=== PATIENT | female | born 1960 | race Caucasian/White ===

== ENCOUNTER → 2016-06-25 | Outpatient (CLI) | payer MEDICARE | LOC: WI 14:00 | PROVIDERS: ATTEND Physician Assistant | DX: Z12.31 Encounter for screening mammogram for malignant neoplasm of breast (principal) | CPT/HCPCS: 77067; G0202 ==

== ENCOUNTER → 2016-11-20 | Outpatient (CLI) | payer MEDICARE ==
[2016-11-20 13:05] LABS: ANION GAP 11 (5-19); BLOOD UREA NITROGEN 33 mg/dL (7-20); CALCIUM 9.4 mg/dL (8.4-10.2); CARBON DIOXIDE 27 mmol/L (22-30); CHLORIDE 106 mmol/L (98-107); CREATININE RESULT 1.82 mg/dL (0.52-1.25); GLUCOSE 161 mg/dL (75-110); POTASSIUM 4.7 mmol/L (3.6-5.0); SODIUM 143.5 mmol/L (137-145)
== END ==
LOC: OD 11:59
PROVIDERS: ATTEND Internal Medicine Nephrology
DX: N17.9 Acute kidney failure, unspecified (principal)
CPT/HCPCS: 36415; 80048

== ENCOUNTER → 2017-06-28 | Outpatient (CLI) | payer MEDICARE ==
--- NOTE | 2017-06-28 14:46 | WOMENS IMAGING REPORT ---
EXAM DESCRIPTION: 3D SCREENING MAMMO BILAT COMPLETED DATE/TIME: 06/28/2017 11:33 am REASON FOR STUDY: ROUTINE SCREENING;Z12.31 Z12.31 ENCNTR SCREEN MAMMOGRAM FOR MALIGNANT NEOPLASM OF MADDISON COMPARISON: Multiple since 2008 TECHNIQUE: Standard craniocaudal and mediolateral oblique views of each breast recorded using digita l acquisition and breast tomosynthesis. LIMITATIONS: None. FINDINGS: No masses, calcifications or architectural distortion. No areas of suspicion. Read with the assistance of CAD. .[facility] - R2 Cenova Version 1.3 .[facility] Imaging - R2 Cenova Version 1.3 .[facility] Imaging - R2 Cenova Version 2.4 .[facility] - R2 Cenova Version 2.4 .[facility] - R2 [employer] Version 9.2 IMPRESSION: NORMAL MAMMOGRAM. BIRADS 1. BREAST DENSITY: b. There are scattered areas of fibroglandular density. BIRAD: 1 NEGATIVE RECOMMENDATION: ROUTINE SCREENING Please continue yearly bilateral screening mammography/tomosynthesis in June 2018 COMMENT: The patient has been notified of the results by letter per MQSA requirements. Additional no tification policies are in place for contacting patient with suspicious or incomplete findings. Quality ID #[id number]: The [employer] recommends an annual screening mammogram for women aged 40 years or over. This facility utilizes a reminder system to ensure that all patients receive reminder letters, and/or direct phone calls for appointments. This includes reminders for routine scr eening mammograms, diagnostic mammograms, or other Breast Imaging Interventions when appropriate. Th is patient will be placed in the appropriate reminder system. The [employer] (ACR) has developed recommendations for screening MRI of the breast s in certain patient populations, to be used in conjunction with mammography. Breast MRI surveillanc e may be appropriate for women with more than 20% lifetime risk of developing breast cancer as deter mined by genetic testing, significant family history of the disease, or history of mantle radiation f or Hodgkins Disease. ACR Practice Guidelines 2008. DBT Technology DBT is a type of tomographic mammography. With conventional mammography, overlapping breast tissue ma y make lesions difficult to detect, even with good compression. DBT uses an x-ray tube that rotates a round the breast, taking images at different angles. These images are then combined to create thin sl ices of the breast that the radiologist can view as a 3D reconstruction. The [employer] unit can perform full-field digital mammograms (2D imaging); or DBT (3D imaging); or both, in a combination mode that quickly performs both the mammogram and the tomosynthesis scan while the breast is still compressed. PQRS 6045F: Fluoroscopic imaging is not utilized for breast tomosynthesis. TECHNICAL DOCUMENTATION: FINDING NUMBER: (1) ASSESSMENT: (1) JOB ID: [id number] [employer]- All Rights Reserved Reading location - IP/workstation name: [email or web address]-[email or web address]
== END ==
LOC: WI 11:16
PROVIDERS: ATTEND Physician Assistant
DX: Z12.31 Encounter for screening mammogram for malignant neoplasm of breast (principal)
CPT/HCPCS: 77063; 77067

== ENCOUNTER → 2017-07-01 | Outpatient (CLI) | payer MEDICARE ==
[2017-07-01 10:46] LABS: ABSOLUTE BASOPHILS # (AUTO) 0.1 10^3/uL (0.0-0.2); ABSOLUTE EOSINOPHILS # (AUTO) 0.3 10^3/uL (0.0-0.6); ABSOLUTE LYMPHOCYTES (AUTO) 1.3 10^3/uL (0.5-4.7); ABSOLUTE MONOCYTES (AUTO) 0.4 10^3/uL (0.1-1.4); ABSOLUTE NEUT (AUTO) 3.9 10^3/uL (1.7-8.2); EOSINOPHILS % (AUTO) 4.7 % (0-6); HEMATOCRIT 36.3 % (36.0-47.0); HEMOGLOBIN 12.4 g/dL (12.0-15.5); LYMPHOCYTES % (AUTO) 21.6 % (13-45); MEAN CORPUSCULAR HEMOGLOBIN 31.3 pg (27.0-33.4); MEAN CORPUSCULAR HGB CONC 34.3 g/dL (32.0-36.0); MEAN CORPUSCULAR VOLUME 91 fl (80-97); MONOCYTES % (AUTO) 6.6 % (3-13); PLATELET COUNT 363 10^3/uL (150-450); RED BLOOD COUNT 3.98 10^6/uL (3.72-5.28); RED CELL DISTRIBUTION WIDTH 13.7 % (11.5-14.0); SEGMENTED NEUTROPHILS % (AUTO) 66.1 % (42-78); TOTAL CELLS COUNTED % (AUTO) 100 %
[2017-07-01 11:06] LABS: ANION GAP 16 (5-19); BLOOD UREA NITROGEN 42 mg/dL (7-20); CALCIUM 10.1 mg/dL (8.4-10.2); CARBON DIOXIDE 25 mmol/L (22-30); CHLORIDE 106 mmol/L (98-107); GLUCOSE 78 mg/dL (75-110); IRON(TIBC) 82.9 ug/dL (37-170); POTASSIUM 4.8 mmol/L (3.6-5.0); SODIUM 146.9 mmol/L (137-145)
== END ==
LOC: OD 09:21
PROVIDERS: ATTEND Internal Medicine Nephrology
DX: N18.3 Chronic kidney disease, stage 3 (moderate) (principal); D50.9 Iron deficiency anemia, unspecified; E55.9 Vitamin D deficiency, unspecified
CPT/HCPCS: 36415; 80048; 82306; 82728; 83540; 83550; 85025

== ENCOUNTER → 2017-11-04 | Outpatient (CLI) | payer MEDICARE ==
[2017-11-04 10:13] LABS: APPEARANCE,URINE CLEAR; BILIRUBIN,URINE NEGATIVE (NEGATIVE); COLOR,URINE STRAW; GLUCOSE, URINE NEGATIVE (NEGATIVE); KETONES,URINE NEGATIVE (NEGATIVE); LEUKOCYTE ESTERASE,URINE SMALL (NEGATIVE); NITRITE,URINE NEGATIVE (NEGATIVE); PROTEIN,URINE NEGATIVE (NEGATIVE); URINE SPECIFIC GRAVITY 1.008; UROBILINOGEN,URINE NEGATIVE mg/dL (<2.0)
[2017-11-04 10:39] LABS: ANION GAP 11 (5-19); BLOOD UREA NITROGEN 31 mg/dL (7-20); CARBON DIOXIDE 28 mmol/L (22-30); CHLORIDE 103 mmol/L (98-107); GLUCOSE 52 mg/dL (75-110); POTASSIUM 4.1 mmol/L (3.6-5.0); SODIUM 142.1 mmol/L (137-145)
[2017-11-05 12:38] LABS: CREATININE URINE 32.5 mg/dL (Not Estab.)
[2017-11-05 13:58] LABS: MICROALBUMIN URINE <3.0 ug/mL (Not Estab.)
== END ==
LOC: OD 08:41
PROVIDERS: ATTEND Internal Medicine Nephrology
DX: N18.3 Chronic kidney disease, stage 3 (moderate) (principal); E11.9 Type 2 diabetes mellitus without complications
CPT/HCPCS: 36415; 80048; 81001; 82043; 82570

== ENCOUNTER 2018-02-01 23:03 | Emergency (ER) | payer MEDICARE ==
[2018-02-01] MEDS ORDERED: IPRATROPIUM/ALBUTEROL 0.5-2.5 MG/3 ML AMPUL NEB ONE (23:35)
--- NOTE | 2018-02-02 00:06 | RADIOLOGY REPORT (SQ) ---
EXAM DESCRIPTION: XR CHEST 1 VIEW COMPLETED DATE/TME: 02/01/2018 23:34 CLINICAL HISTORY: 57 years, Female, sob COMPARISON: X-ray chest of 01/10/2016 NUMBER OF VIEWS: TECHNIQUE: LIMITATIONS: None. FINDINGS: No evidence of pulmonary infiltrate or pleural effusion. The heart and mediastinum are unremarkable. Pulmonary vascularity appears normal. There is no significant change, as compared with the prior x-rays. IMPRESSION: No acute finding. copyright 2010 [employer]- All Rights Reserved
[2018-02-02 00:10] LABS: ABSOLUTE EOSINOPHILS # (AUTO) 0.2 10^3/uL (0.0-0.6); ABSOLUTE LYMPHOCYTES (AUTO) 1.1 10^3/uL (0.5-4.7); ABSOLUTE MONOCYTES (AUTO) 0.5 10^3/uL (0.1-1.4); ABSOLUTE NEUT (AUTO) 3.5 10^3/uL (1.7-8.2); BASOPHILS % (AUTO) 0.7 % (0-2); EOSINOPHILS % (AUTO) 4.5 % (0-6); HEMATOCRIT 37.4 % (36.0-47.0); HEMOGLOBIN 12.7 g/dL (12.0-15.5); MEAN CORPUSCULAR HEMOGLOBIN 31.6 pg (27.0-33.4); MEAN CORPUSCULAR HGB CONC 34.1 g/dL (32.0-36.0); MEAN CORPUSCULAR VOLUME 93 fl (80-97); MONOCYTES % (AUTO) 9.1 % (3-13); PLATELET COUNT 324 10^3/uL (150-450); RED BLOOD COUNT 4.03 10^6/uL (3.72-5.28); RED CELL DISTRIBUTION WIDTH 13.4 % (11.5-14.0); SEGMENTED NEUTROPHILS % (AUTO) 64.7 % (42-78); TOTAL CELLS COUNTED % (AUTO) 100 %; WHITE BLOOD COUNT 5.4 10^3/uL (4.0-10.5)
[2018-02-02 00:11] LABS: VENOUS BLOOD BASE EXCESS 0.6 mmol/L; VENOUS BLOOD HCO3 25.2 mmol/L (20-32); VENOUS BLOOD PCO2 40.5 mmHg (35-63); VENOUS BLOOD PH 7.41 (7.30-7.42)
[2018-02-02 00:18] LABS: ANION GAP 12 (5-19); BLOOD UREA NITROGEN 22 mg/dL (7-20); CALCIUM 9.4 mg/dL (8.4-10.2); CARBON DIOXIDE 24 mmol/L (22-30); CHLORIDE 107 mmol/L (98-107); GLUCOSE 230 mg/dL (75-110); POTASSIUM 4.1 mmol/L (3.6-5.0); SODIUM 142.5 mmol/L (137-145)
[2018-02-02] MEDS ORDERED: BENZONATATE 100 MG CAPSULE PO ONE (00:38)
[2018-02-02] MEDS ORDERED: PREDNISONE 20 MG TABLET PO ONE (00:38)
[2018-02-02] MEDS ORDERED: DOXYCYCLINE HYCLATE 100 MG TABLET PO ONE (00:38)
--- NOTE | 2018-02-02 00:41 | ER Document Report ---
ED General - General Chief Complaint: Shortness Of Breath Stated Complaint: SHORT OF BREATH Time Seen by Provider: 02/01/18 23:34 Notes: Patient is a 57-year-old female with a past medical history of hypertension, hyperlipidemia, COPD, continues to smoke who presents with 2 days of cough, sputum production, body aches, nasal congestion and fever. Patient states that her symptoms started gradually over the past several days and has gotten progressively worse. She has been trying inhalers at home with moderate improvement of her cough and wheezing. Nothing worsens her symptoms. She notes this feels very similar to when she has had COPD exacerbations with bronchitis in the past. She has not seen her general physician regarding concerns. She denies any associated vomiting or diarrhea. She has been able to tolerate oral intake without difficulty. No headache or neck pain. No syncope. TRAVEL OUTSIDE OF THE [place] IN LAST 30 DAYS: No - Related Data Allergies/Adverse Reactions: cephalexin monohydrate [From Keflex] Allergy (Verified 08/03/13 09:22) ciprofloxacin [From Cipro] Allergy (Verified 08/03/13 09:22) Penicillins Allergy (Verified 08/03/13 09:22) Sulfa (Sulfonamide Antibiotics) Allergy (Verified 08/03/13 09:22) Past Medical History - General Information source: Patient - Social History Smoking Status: Current Every Day Smoker Frequency of alcohol use: None Drug Abuse: None Lives with: Spouse/Significant other Family History: Reviewed & Not Pertinent Patient has suicidal ideation: No Patient has homicidal ideation: No - Past Medical History Cardiac Medical History: Reports: Hx Congestive Heart Failure, Hx Coronary Artery Disease - ON MEDICATIONS, Hx Hypercholesterolemia, Hx Hypertension Denies: Hx Heart Attack Pulmonary Medical History: Reports: Hx Asthma, Hx COPD, Hx Pneumonia Denies: Hx Bronchitis Neurological Medical History: Reports: Hx Migraine, Hx Seizures. Denies: Hx Cerebrovascular Accident Endocrine Medical History: Reports: Hx Diabetes Mellitus Type 2 Renal/ Medical History: Reports: Hx Ovarian Cysts. Denies: Hx Peritoneal Dialysis GI Medical History: Reports: Hx Gastroesophageal Reflux Disease, Hx Irritable Bowel Musculoskeletal Medical History: Reports Hx Arthritis, Reports Hx Muscle Weakness, Reports Hx Musculoskeletal Deformity, Reports Hx Musculoskeletal Trauma Psychiatric Medical History: Reports: Hx Depression Past Surgical History: Reports: Hx Cardiac Catheterization, Hx Cholecystectomy, Hx Gynecologic Surgery - right ovary removed, Hx Orthopedic Surgery - bilateral knees and elbows, Hx Tubal Ligation - Immunizations Immunizations up to date: Yes Hx Diphtheria, Pertussis, Tetanus Vaccination: Yes Hx Pneumococcal Vaccination: 03/11/14 Review of Systems - Review of Systems Notes: Constitutional: Positive for fever and generalized fatigue HENT: Negative for sore throat. Eyes: Negative for visual changes. Cardiovascular: Negative for chest pain. Respiratory: Positive for shortness of breath. Gastrointestinal: Negative for abdominal pain, vomiting or diarrhea. Genitourinary: Negative for dysuria. Musculoskeletal: Negative for back pain. Skin: Negative for rash. Neurological: Negative for headaches, weakness or numbness. 10 point ROS negative except as marked above and in HPI. Physical Exam - Vital signs Vitals: Temp Pulse Resp BP Pulse Ox 100.4 F 72 22 H 122/71 95 02/01/18 23:13 02/01/18 23:13 02/01/18 23:13 02/01/18 23:13 02/01/18 23:13 Interpretation: Normal Notes: PHYSICAL EXAMINATION: GENERAL: Well-appearing, well-nourished and in no acute distress. HEAD: Atraumatic, normocephalic. EYES: Pupils equal round and reactive to light, extraocular movements intact, sclera anicteric, conjunctiva are normal. ENT: nares patent, oropharynx clear without exudates. Moderately dry mucous membranes. NECK: Normal range of motion, supple without lymphadenopathy LUNGS: Breath sounds clear to auscultation bilaterally and equal. Faint expiratory wheezing in all lung villa. Persistent coughing. HEART: Regular rate and rhythm without murmurs ABDOMEN: Soft, nontender, normoactive bowel sounds. No guarding, no rebound. No masses appreciated. EXTREMITIES: Normal range of motion, no pitting or edema. No cyanosis. NEUROLOGICAL: No focal neurological deficits. Moves all extremities spontaneously and on command. PSYCH: Normal mood, normal affect. SKIN: Warm, Dry, normal turgor, no rashes or lesions noted. Course - Re-evaluation Re-evalutation: 02/02/18 00:39 Patient presents with a mild exacerbation of their baseline COPD. Mild wheezing at time of presentation but vitals do not show significant hypoxemia or tachypnea. No retractions. Patient did clinically improve after receiving nebulizers here in the emergency department. Chest x-ray without evidence of an acute pneumonia although patient did have a low-grade temperature of 100.4 F and has had increased sputum production warranting antibiotic coverage. Laboratories do not show acute kidney injury or significant leukocytosis. Patient able to ambulate without any respiratory distress. Based on patient's overall reassuring assessment, I believe they are stable for outpatient management with steroids. Patient has nebulizers at home. I do not suspect an acute alternative pathology at this time based on history and exam including acute pulmonary embolus, ACS, pneumothorax, or aortic dissection. At this time will discharge with return precautions and follow-up recommendations. Verbal discharge instructions given a the bedside and opportunity for questions given. Medication warnings reviewed. Patient is in agreement with this plan and has verbalized understanding of return precautions and the need for primary care follow-up in the next 24-72 hours. - Vital Signs Vital signs: Temp Pulse Resp BP Pulse Ox 97.4 F 88 22 H 127/58 H 95 02/02/18 00:54 02/02/18 00:54 02/02/18 00:54 02/02/18 00:54 02/02/18 00:54 - Laboratory Result Diagrams: 02/01/18 23:50 02/01/18 23:50 Laboratory results interpreted by me: 02/01/18 23:50 BUN 22 H Est GFR (Non-Af Amer) 52 L Glucose 230 H - Diagnostic Test Radiology reviewed: Image reviewed, Reports reviewed Radiology results interpreted by me: 02/02/18 00:39 Chest x-ray: No acute infiltrate or pneumothorax - EKG Interpretation by Me Additional EKG results interpreted by me: 02/02/18 00:39 Sinus rhythm, rate 72. No ST elevations or depressions. QTC is 465. Discharge - Discharge Clinical Impression: COPD exacerbation, Persistent cough Fever Qualifiers: Fever type: unspecified Qualified Code(s): R50.9 - Fever, unspecified Condition: Good Disposition: HOME, SELF-CARE Additional Instructions: You were seen for a COPD exacerbation. Your symptoms improved with treatment here in the emergency department. However, it is very important that you return to the emergency department immediately if you began to have worsening difficulty breathing that does not respond to your normal home nebulizers. You are also being sent home on a five-day course of steroids that you should start taking tomorrow. Your also being started on a course of antibiotics given that she did have a fever. Please also follow closely with your primary care physician. You should return to emergency department if you develop fever greater than 101, persistent cough, persistent vomiting, pass out, or any other symptoms that are concerning to you. Prescriptions: Benzonatate [Tessalon Perles 100 mg Capsule] 100 mg PO Q8HP PRN #40 capsule PRN Reason: Doxycycline Hyclate 100 mg PO BID #14 capsule Prednisone [Deltasone 20 mg Tablet] 2 tab PO DAILY 5 Days tablet Referrals: CHRISTOPHER ELDER MD [ACTIVE STAFF] - Follow up in 3-5 days
[2018-02-02 00:55] VITALS: BP 127/58
--- NOTE | 2018-02-02 10:36 | EKG REPORT ---
SEVERITY:- OTHERWISE NORMAL ECG - SINUS RHYTHM BORDERLINE LEFT AXIS DEVIATION : Confirmed by: Enoc Aviles 02-Feb-2018 10:35:43
== END 2018-02-02 01:04 | disposition home or self-care (01) ==
LOC: ER 23:03
DX: J44.1 Chronic obstructive pulmonary disease with (acute) exacerbation (principal); R05 Cough; R09.81 Nasal congestion; R50.9 Fever, unspecified; R52 Pain, unspecified; R53.83 Other fatigue; I25.10 Atherosclerotic heart disease of native coronary artery without angina pectoris; E11.9 Type 2 diabetes mellitus without complications; I10 Essential (primary) hypertension; F17.200 Nicotine dependence, unspecified, uncomplicated; Z88.1 Allergy status to other antibiotic agents; Z88.0 Allergy status to penicillin; Z88.2 Allergy status to sulfonamides
CPT/HCPCS: 93005; 94640; 99285; 36415; 87040; 85025; 80048; 84484; 82803; 83605; 71045; 93010; A9270 ×4; J7512; J7620

== ENCOUNTER → 2018-02-10 | Outpatient (CLI) | payer MEDICARE ==
--- NOTE | 2018-02-10 14:32 | RADIOLOGY REPORT (SQ) ---
EXAM DESCRIPTION: CT CHEST WITHOUT COMPLETED DATE/TIME: 02/10/2018 1:23 pm REASON FOR STUDY: COUGH (R05) R05 COUGH COMPARISON: Chest films 09/12/2011, 08/15/2015, 01/10/2016, 02/01/2018 CT abdomen pelvis 03/23/2010 TECHNIQUE: CT scan performed of the chest without intravenous contrast. Images reviewed with lung, soft tissue and bone windows. Reconstructed coronal and sagittal MPR images reviewed. All images st ored on PACS. All CT scanners at this facility use dose modulation, iterative reconstruction, and/or weight based d osing when appropriate to reduce radiation dose to as low as reasonably achievable (ALARA). [facility]: Dose Right [facility]: CareDose [facility]: Dose Right [facility]: Teradose 4D [facility]: [employer] RADIATION DOSE: CT Rad equipment meets quality standard of care and radiation dose reduction techniq ues were employed. CTDIvol: 19.5 mGy. DLP: 767 mGy-cm. mGy. LIMITATIONS: No technical limitations. FINDINGS: LUNGS AND PLEURA: At the left lung base, along the inferior aspect of the major fissure, a 6 x 3 cm bulla or bleb is present. Along the superior edge of the left major fissure, 1.5 x 1 cm bu llae or blebs are present on axial image 35. Minimal left basilar bandlike scarring or atelectasis is present. No alveolar or interstitial lung d isease. Airways are patent. No pleural effusions. No pneumothorax. HILAR AND MEDIASTINAL STRUCTURES: Small hiatal hernia. No identified masses or abnormal nodes. No o bvious aneurysm. HEART AND VASCULAR STRUCTURES: No aneurysm. No pericardial effusion. UPPER ABDOMEN: 2.6 cm nodule, left adrenal gland similar compared to CT abdomen pelvis 03/23/2010. 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 Right adrenal gland unremarkable THYROID AND OTHER SOFT TISSUES: No masses. No adenopathy. BONES: No significant finding. HARDWARE: None in the chest. OTHER: No other significant findings. IMPRESSION: Bullae or blebs along the left major fissure. 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
== END ==
LOC: RAD 13:11
PROVIDERS: ATTEND Internal Medicine Pulmonary Disease
DX: J43.9 Emphysema, unspecified (principal); R05 Cough; K44.9 Diaphragmatic hernia without obstruction or gangrene; D17.79 Benign lipomatous neoplasm of other sites
CPT/HCPCS: 71250

== ENCOUNTER → 2018-03-20 | Outpatient (CLI) | payer MEDICARE ==
[2018-03-20 09:07] LABS: ABSOLUTE BASOPHILS # (AUTO) 0.1 10^3/uL (0.0-0.2); ABSOLUTE EOSINOPHILS # (AUTO) 0.2 10^3/uL (0.0-0.6); ABSOLUTE LYMPHOCYTES (AUTO) 1.5 10^3/uL (0.5-4.7); ABSOLUTE MONOCYTES (AUTO) 0.4 10^3/uL (0.1-1.4); EOSINOPHILS % (AUTO) 4.6 % (0-6); HEMATOCRIT 37.6 % (36.0-47.0); LYMPHOCYTES % (AUTO) 28.3 % (13-45); MEAN CORPUSCULAR HEMOGLOBIN 31.6 pg (27.0-33.4); MEAN CORPUSCULAR HGB CONC 34.5 g/dL (32.0-36.0); MEAN CORPUSCULAR VOLUME 92 fl (80-97); MONOCYTES % (AUTO) 8.4 % (3-13); PLATELET COUNT 304 10^3/uL (150-450); RED BLOOD COUNT 4.11 10^6/uL (3.72-5.28); RED CELL DISTRIBUTION WIDTH 13.6 % (11.5-14.0); SEGMENTED NEUTROPHILS % (AUTO) 57.7 % (42-78); TOTAL CELLS COUNTED % (AUTO) 100 %; WHITE BLOOD COUNT 5.3 10^3/uL (4.0-10.5)
[2018-03-20 09:23] LABS: APPEARANCE,URINE CLOUDY; BILIRUBIN,URINE NEGATIVE (NEGATIVE); COLOR,URINE YELLOW; GLUCOSE, URINE NEGATIVE (NEGATIVE); KETONES,URINE NEGATIVE (NEGATIVE); LEUKOCYTE ESTERASE,URINE LARGE (NEGATIVE); NITRITE,URINE NEGATIVE (NEGATIVE); PROTEIN,URINE NEGATIVE (NEGATIVE); URINE SPECIFIC GRAVITY 1.015; UROBILINOGEN,URINE NEGATIVE mg/dL (<2.0)
[2018-03-20 09:35] LABS: ANION GAP 8 (5-19); BLOOD UREA NITROGEN 22 mg/dL (7-20); CALCIUM 9.4 mg/dL (8.4-10.2); CARBON DIOXIDE 26 mmol/L (22-30); CHLORIDE 105 mmol/L (98-107); GLUCOSE 101 mg/dL (75-110); PHOSPHORUS 3.3 mg/dL (2.5-4.5); POTASSIUM 4.5 mmol/L (3.6-5.0); SODIUM 139.4 mmol/L (137-145)
[2018-03-21 12:38] LABS: CREATININE URINE 105.3 mg/dL (Not Estab.)
[2018-03-21 15:48] LABS: MICROALBUMIN URINE <3.0 ug/mL (Not Estab.)
== END ==
LOC: OD 08:27
PROVIDERS: ATTEND Internal Medicine Nephrology
DX: E11.22 Type 2 diabetes mellitus with diabetic chronic kidney disease (principal); N18.3 Chronic kidney disease, stage 3 (moderate); D50.9 Iron deficiency anemia, unspecified; E55.9 Vitamin D deficiency, unspecified
CPT/HCPCS: 36415; 80048; 81001; 82040; 82043; 82306; 82570; 83970; 84100; 85025

== ENCOUNTER → 2018-06-30 | Outpatient (CLI) | payer MEDICARE ==
[2018-06-30 13:35] LABS: ANION GAP 11 (5-19); BLOOD UREA NITROGEN 37 mg/dL (7-20); CALCIUM 9.8 mg/dL (8.4-10.2); CARBON DIOXIDE 24 mmol/L (22-30); CHLORIDE 109 mmol/L (98-107); GLUCOSE 63 mg/dL (75-110); POTASSIUM 4.2 mmol/L (3.6-5.0); SODIUM 144.1 mmol/L (137-145)
[2018-06-30 15:30] LABS: APPEARANCE,URINE SLIGHTLY-CLOUDY; BILIRUBIN,URINE NEGATIVE (NEGATIVE); COLOR,URINE YELLOW; GLUCOSE, URINE NEGATIVE (NEGATIVE); KETONES,URINE NEGATIVE (NEGATIVE); LEUKOCYTE ESTERASE,URINE TRACE (NEGATIVE); NITRITE,URINE NEGATIVE (NEGATIVE); PROTEIN,URINE NEGATIVE (NEGATIVE); URINE SPECIFIC GRAVITY 1.018; UROBILINOGEN,URINE NEGATIVE mg/dL (<2.0)
== END ==
LOC: OD 12:10
PROVIDERS: ATTEND Internal Medicine Nephrology
DX: N18.3 Chronic kidney disease, stage 3 (moderate) (principal); E11.22 Type 2 diabetes mellitus with diabetic chronic kidney disease; I12.9 Hypertensive chronic kidney disease with stage 1 through stage 4 chronic kidney disease, or unspecified chronic kidney disease; D50.8 Other iron deficiency anemias; E55.9 Vitamin D deficiency, unspecified; R10.9 Unspecified abdominal pain
CPT/HCPCS: 36415; 80048; 81001; 87086

== ENCOUNTER → 2018-07-04 | Outpatient (CLI) | payer MEDICARE ==
--- NOTE | 2018-07-04 14:44 | RADIOLOGY REPORT (SQ) ---
EXAM DESCRIPTION: CT ABD/PELVIS NO ORAL OR IV COMPLETED DATE/TIME: 07/04/2018 1:54 pm REASON FOR STUDY: R10.9 UNSPECIFIED ABDOMINAL PAIN R10.9 UNSPECIFIED ABDOMINAL PAIN COMPARISON: 03/23/2010 TECHNIQUE: CT scan of the abdomen and pelvis performed without intravenous or oral contrast. Images reviewed with lung, soft tissue, and bone windows. Reconstructed coronal and sagittal MPR images revi ewed. All images stored on PACS. All CT scanners at this facility use dose modulation, iterative reconstruction, and/or weight based d osing when appropriate to reduce radiation dose to as low as reasonably achievable (ALARA). [facility]: Dose Right [facility]: CareDose [facility]: Dose Right [facility]: Teradose 4D [facility]: [employer] RADIATION DOSE: CT Rad equipment meets quality standard of care and radiation dose reduction techniq ues were employed. CTDIvol: 30.4 mGy. DLP: 1777 mGy-cm.mGy. LIMITATIONS: None. FINDINGS: LOWER CHEST: No significant findings. No nodules or infiltrates. NON-CONTRASTED LIVER, SPLEEN, ADRENALS: Evaluation limited by lack of IV contrast. Benign 2.5 cm lef t adrenal nodule unchanged from February 2010. PANCREAS: No masses. No peripancreatic inflammatory changes. GALLBLADDER: Surgically absent RIGHT KIDNEY AND URETER: No suspicious masses. Assessment limited by lack of IV contrast. No signif icant calcifications. No hydronephrosis or hydroureter. LEFT KIDNEY AND URETER: No suspicious masses. Assessment limited by lack of IV contrast. No signifi cant calcifications. No hydronephrosis or hydroureter. AORTA AND RETROPERITONEUM: No aneurysm. No retroperitoneal masses or adenopathy. BOWEL AND PERITONEAL CAVITY: No obvious masses or inflammatory changes. No free fluid. APPENDIX: Normal. PELVIS, BLADDER, AND ABDOMINAL WALL:No abnormal masses. No free fluid. Bladder normal. Fibroid uteru s BONES: Diffuse degenerative disc changes and lumbar facet arthropathy OTHER: No other significant finding. IMPRESSION: No CT findings to explain history of abdominal pain COMMENT: Quality ID # 436: Final reports with documentation of one or more dose reduction techniques (e.g., Automated exposure control, adjustment of the mA and/or kV according to patient size, use of iterative reconstruction technique) TECHNICAL DOCUMENTATION: JOB ID: [id number] [employer]- All Rights Reserved Reading location - IP/workstation name: [email or web address]
== END ==
LOC: RAD 13:40
PROVIDERS: ATTEND Internal Medicine Nephrology
DX: R10.9 Unspecified abdominal pain (principal)
CPT/HCPCS: 74176

== ENCOUNTER → 2018-08-08 | Outpatient (CLI) | payer MEDICARE | LOC: WI 11:43 | PROVIDERS: ATTEND Physician Assistant | DX: Z12.31 Encounter for screening mammogram for malignant neoplasm of breast (principal) | CPT/HCPCS: 77063; 77067 ==

== ENCOUNTER → 2019-01-19 | Outpatient (CLI) | payer MEDICARE ==
[2019-01-19 09:10] LABS: APPEARANCE,URINE CLOUDY; BILIRUBIN,URINE NEGATIVE (NEGATIVE); COLOR,URINE YELLOW; GLUCOSE, URINE NEGATIVE (NEGATIVE); KETONES,URINE NEGATIVE (NEGATIVE); LEUKOCYTE ESTERASE,URINE NEGATIVE (NEGATIVE); NITRITE,URINE NEGATIVE (NEGATIVE); PROTEIN,URINE NEGATIVE (NEGATIVE); UROBILINOGEN,URINE NEGATIVE mg/dL (<2.0)
[2019-01-19 09:42] LABS: ANION GAP 9 (5-19); BLOOD UREA NITROGEN 27 mg/dL (7-20); CALCIUM 9.6 mg/dL (8.4-10.2); CARBON DIOXIDE 24 mmol/L (22-30); CHLORIDE 108 mmol/L (98-107); GLUCOSE 171 mg/dL (75-110); PHOSPHORUS 4.9 mg/dL (2.5-4.5)
== END ==
LOC: OD 08:35
PROVIDERS: ATTEND Internal Medicine Nephrology
DX: N18.3 Chronic kidney disease, stage 3 (moderate) (principal); I10 Essential (primary) hypertension; E11.9 Type 2 diabetes mellitus without complications; R30.9 Painful micturition, unspecified
CPT/HCPCS: 36415; 80048; 81001; 84100; 87086

== ENCOUNTER → 2019-03-05 | Outpatient (CLI) | payer MEDICARE ==
--- NOTE | 2019-03-05 12:44 | RADIOLOGY REPORT (SQ) ---
EXAM DESCRIPTION: CT CHEST WITHOUT COMPLETED DATE/TIME: 03/05/2019 9:43 am REASON FOR STUDY: BULLOUS EMPHYSEMA (J43.9) J43.9 EMPHYSEMA, UNSPECIFIED COMPARISON: None. TECHNIQUE: CT scan performed of the chest without intravenous contrast. Images reviewed with lung, soft tissue and bone windows. Reconstructed coronal and sagittal MPR images reviewed. All images st ored on PACS. All CT scanners at this facility use dose modulation, iterative reconstruction, and/or weight based d osing when appropriate to reduce radiation dose to as low as reasonably achievable (ALARA). [facility]: Dose Right [facility]: CareDose [facility]: Dose Right [facility]: Teradose 4D [facility]: [employer] RADIATION DOSE: CT Rad equipment meets quality standard of care and radiation dose reduction techniq ues were employed. CTDIvol: 19.4 mGy. DLP: 736 mGy-cm. mGy. LIMITATIONS: No technical limitations. FINDINGS: LUNGS AND PLEURA: There are some perifissural bullae on the left. The largest measures 6 x 3 cm on image 59. There is no infiltrate, mass, or effusion. HILAR AND MEDIASTINAL STRUCTURES: No identified masses or abnormal nodes. No obvious aneurysm. HEART AND VASCULAR STRUCTURES: No aneurysm. No pericardial effusion. UPPER ABDOMEN: No significant findings. Limited exam. THYROID AND OTHER SOFT TISSUES: No masses. No adenopathy. BONES: No significant finding. HARDWARE: None in the chest. OTHER: No other significant findings. IMPRESSION: Mild bullous emphysema. No acute finding. TECHNICAL DOCUMENTATION: JOB ID: [id number] Quality ID # [id number]: Final reports with documentation of one or more dose reduction techniques (e.g., Au tomated exposure control, adjustment of the mA and/or kV according to patient size, use of iterative reconstruction technique) 2010 [employer]- All Rights Reserved Reading location - IP/workstation name: [email or web address]
== END ==
LOC: RAD 09:23
PROVIDERS: ATTEND Registered Nurse
DX: J43.9 Emphysema, unspecified (principal)
CPT/HCPCS: 71250

== ENCOUNTER → 2019-11-04 | Outpatient (CLI) | payer MEDICARE ==
--- NOTE | 2019-11-04 12:49 | WOMENS IMAGING REPORT ---
EXAM DESCRIPTION: 3D SCREENING MAMMO BILAT IMAGES COMPLETED DATE/TIME: 11/04/2019 12:12 pm REASON FOR STUDY: Z12.31 ENCNTR SCREEN MAMMOGRAM FOR MALIGNANT NEOPLASM OF BREAST Z12.31 ENCNTR SCR EEN MAMMOGRAM FOR MALIGNANT NEOPLASM OF [place]DISON COMPARISON: Priors dating back 2013. EXAM PARAMETERS: Views: Standard craniocaudal and mediolateral oblique views of each breast recorded using digital acquisition and breast tomosynthesis. Read with the assistance of CAD. .[facility] [employer] Version 9.2 LIMITATIONS: None. FINDINGS: No suspicious masses, suspicious calcifications or architectural distortion. No areas of c oncern. IMPRESSION: NEGATIVE MAMMOGRAM. BIRADS 1. BREAST DENSITY: b. There are scattered areas of fibroglandular density. BIRAD: ASSESSMENT: 1 NEGATIVE RECOMMENDATION: ROUTINE SCREENING COMMENT: The patient has been notified of the results by letter per MQSA requirements. Additional no tification policies are in place for contacting patient with suspicious or incomplete findings. Quality ID #[id number]: The [employer] recommends an annual screening mammogram for women aged 40 years or over. This facility utilizes a reminder system to ensure that all patients receive reminder letters, and/or direct phone calls for appointments. This includes reminders for routine scr eening mammograms, diagnostic mammograms, or other Breast Imaging Interventions when appropriate. Th is patient will be placed in the appropriate reminder system. TECHNICAL DOCUMENTATION: FINDING NUMBER: (1) ASSESSMENT: (1) JOB ID: [id number] 2010 [employer]- All Rights Reserved Reading location - IP/workstation name: [email or web address]
== END ==
LOC: WI 11:21
PROVIDERS: ATTEND Physician Assistant
DX: Z12.31 Encounter for screening mammogram for malignant neoplasm of breast (principal)
CPT/HCPCS: 77063; 77067

== ENCOUNTER → 2020-01-07 | Outpatient (CLI) | payer MEDICARE ==
[2020-01-07 12:47] LABS: ANION GAP 8 (5-19); BLOOD UREA NITROGEN 17 mg/dL (7-20); CALCIUM 9.2 mg/dL (8.4-10.2); CARBON DIOXIDE 23 mmol/L (22-30); CHLORIDE 109 mmol/L (98-107); GLUCOSE 155 mg/dL (75-110); POTASSIUM 4.3 mmol/L (3.6-5.0)
--- OUTSIDE RECORDS SUMMARY | 2020-01-08 15:23 | XMS REPORT ---
:1960 [facility] [place] [address] [place] [address] Care Team Providers Name Role Phone BUNDLE Primary Care Physician Unavailable Gabbi CARDOZO Attending Clinician Unavailable Bundle Attending Clinician Unavailable Blaise CARDOZO Attending Clinician Unavailable Bundle Attending Clinician Unavailable Bundle MINDY Geronimo Attending Clinician Unavailable Allergies, Adverse Reactions, Alerts Allergy Name Allergy Status Severity Reaction(s) Onset Inactive Treat ing Comments Type Date Date Clinician AZITHROMYCIN Drug Active Unknown allergy 2-03 00:00: 00 Cephalexin Allergy to Active substance 8-25 00:00: 00 Ciprofloxaci Allergy to Active 2017- n substance 8-25 00:00: 00 Saccharin Allergy to Active 2017- substance 8-25 00:00: 00 Cipro Allergy to Active 2013- substance 1-20 00:00: 00 Keflex Allergy to Active 2013-0 substance 1-20 00:00: 00 Penicillins Allergy to Active 2013-0 substance 1-20 00:00: 00 Sulfa Allergy to Active 2013-0 (Sulfonamide substance 1-20 Antibiotics) 00:00: 00 Cipro TABS Cipro TABS Active Keflex TABS Keflex TABS Active Penicillins Penicillins Active Sulfa Drugs Sulfa Drugs Active Medications Ordered Filled Start Stop Current Ordering Indication Dosage Frequency Signature Comments Components Medication Medication Date Date Medication? Clinician (SIG) Name Name Famotidine No Famotidine 20 MG Oral 8-27 20 MG Oral Tablet 00:00: Tablet 00 Quantity: 90 Refills: 0 Start : 0Active Topiramate Yes Topiramate 25 MG Oral 3-12 25 MG Oral Capsule 00:00: Capsule Sprinkle 00 Sprinkle Quantity: 240 Refills: 0 Start : 0Active Metoprolol No Metoprolol Tartrate 25 2-03 Tartrate MG Oral 00:00: 25 MG Oral Tablet 00 Tablet Quantity: 180 Refills: 0 Start : 30-Mar-2019 Active Metoprolol Tonie Lozano QD Metoprolol Succinate 11-17 Blaise CARDOZO Succinate ER 50 MG 07:50: ER 50 MG Oral Tablet 13 Oral Extended Tablet Release 24 Extended Hour Release 24 Hour Take 1 tablet by mouth once daily Quantity: 30 Refills: 11 Blake Welsh MD Start : 9Active Oxybutynin No Oxybutynin Chloride 5 08-22 Chloride 5 MG/5ML Oral 00:00: MG/5ML Syrup 00 Oral Syrup Quantity: 300 Refills: 0 Start : 9Active Lisinopril No Lluvia Lisinopril 20 MG Oral 05-23 Vishnu GUILLEN-Grazyna 20 MG Oral Tablet 13:56: Tablet 17 TAKE ONE TABLET BY MOUTH ONCE DAILY DIRECTED Quantity: 90 Refills: 3 Lluvia Mares PA-C Start : 9Active Furosemide 2017-02 Yes Quentin Furosemide 40 MG Oral 04-24 David DAIGLE 40 MG Oral Tablet 11:10: Tablet 51 TAKE ONE TABLET BY MOUTH ONCE DAILY Quantity: 90 Refills: 3 Quentin Hernandez PA-C Start : 8Active Klor-Con 2017-02 No Blake Klor-Juan Manuel M20 20 MEQ 2- Blaise CARDOZO M20 20 MEQ Oral Tablet 12:44: Oral Extended 15 Tablet Release Extended Release TAKE ONE TABLET BY MOUTH ONCE DAILY Quantity: 90 Refills: 3 Blake Welsh MD Start : 27-Jan-2018 Active Furosemide No Quentin Furosemide 80 MG Oral 6- David DAIGLE 80 MG Oral Tablet 16:14: Tablet 32 TAKE ONE TABLET BY MOUTH ONCE DAILY IN THE MORNING Quantity: 90 Refills: 3 Quentin Hernandez PA-C Start : 29-Jul-2017 Active Anoro No Anoro Ellipta 5-22 Ellipta 62.5-25 00:00: 62.5-25 MCG/INH 00 MCG/INH Inhalation Inhalation Aerosol Aerosol Powder Powder Breath Breath Activated Activated 1 puff once a day Refills: 0 Start : 7Active 14 Inhaler Pack Metoprolol Tonie Lozano Metoprolol Succinate 09-12 Blaise CARDOZO Succinate ER 25 MG 00:00: ER 25 MG Oral Tablet 00 Oral Extended Tablet Release 24 Extended Hour Release 24 Hour Refills: 0 Blake Welsh MD Start : 6Active levofloxaci No levofloxac n 500 mg in 500 mg tablet TAKE tablet 1 TABLET BY TAKE 1 MOUTH EVERY TABLET BY 24 HOURS MOUTH EVERY 24 HOURS lisinopril No lisinopril 20 mg 20 mg tablet TAKE tablet 1 TABLET BY TAKE 1 MOUTH ONCE TABLET BY DAILY MOUTH ONCE DIRECTED DAILY DIRECTED methocarbam No methocarba ol 500 mg mol 500 mg tablet Take tablet 2 tablets Take 2 twice a day tablets by oral twice a route for day by 30 days. oral route for 30 days. metoprolol No metoprolol succinate succinate ER 50 mg ER 50 mg tablet,exte tablet,ext nded ended release 24 release 24 hr TAKE 1 hr TAKE 1 TABLET BY TABLET BY MOUTH ONCE MOUTH ONCE DAILY DAILY nabumetone No nabumetone 500 mg 500 mg tablet Take tablet 1 tablet(s) Take 1 twice a day tablet(s) by oral twice a route. day by oral route. ofloxacin No ofloxacin 0.3 % ear 0.3 % ear drops drops oxybutynin No oxybutynin chloride 5 chloride 5 mg tablet mg tablet TAKE 1 TAKE 1 TABLET BY TABLET BY MOUTH TWICE MOUTH DAILY TWICE DAILY oxycodone-a No oxycodone- cetaminophe acetaminop n 5 mg-325 hen 5 mg tablet mg-325 mg tablet pantoprazol No pantoprazo e 40 mg le 40 mg tablet,marcin tablet,del yed release ayed 40 mg by release 40 oral route. mg by oral route. potassium No potassium chloride ER chloride 10 mEq ER 10 mEq capsule,ext capsule,ex ended tended release release TAKE 2 TAKE 2 CAPSULES BY CAPSULES MOUTH ONCE BY MOUTH DAILY WITH ONCE DAILY FOOD WITH FOOD topiramate No topiramate 25 mg 25 mg sprinkle sprinkle capsule capsule TAKE 4 TAKE 4 CAPSULES BY CAPSULES MOUTH TWICE BY MOUTH DAILY IN TWICE THE MORNING DAILY IN AND IN THE THE EVENING MORNING AND IN THE EVENING calcium-vit No calcium-vi chin tamin D3-vitamin D3-vitamin K 500 K 500 mg-1,000 mg-1,000 unit-40 mcg unit-40 chewable mcg tablet chewable tablet HYDROcodone No 1 HYDROcodon -Acetaminop e-Acetamin hen 10-325 ophen MG Oral 10-325 MG Tablet Oral Tablet TAKE 1 TABLET EVERY 4 HOURS NEEDED FOR PAIN. Refills: 0 Active ferrous No ferrous sulfate 15 sulfate 15 mg iron (75 mg iron mg)/mL oral (75 mg)/mL syringe oral (FOR ORAL syringe USE ONLY) (FOR ORAL USE ONLY) Fenofibrate No 1 QD Fenofibrat 160 MG Oral e 160 MG Tablet Oral Tablet TAKE 1 TABLET DAILY Quantity: 30 Refills: 5 Active metoprolol No metoprolol tartrate 25 tartrate mg tablet 25 mg TAKE 1 tablet TABLET BY TAKE 1 MOUTH TWICE TABLET BY DAILY MOUTH (CRUSH TWICE TABLET) DAILY (CRUSH TABLET) Atorvastati No Atorvastat n Calcium in Calcium 20 MG Oral 20 MG Oral Tablet Tablet TAKE 1 TABLET AT BEDTIME. Quantity: 30 Refills: 0 Active omeprazole No omeprazole 20 mg 20 mg capsule,del capsule,de ayed layed release release TAKE 1 TAKE 1 CAPSULE BY CAPSULE BY MOUTH ONCE MOUTH ONCE DAILY DAILY Oxybutynin No 1 Q0.5D Oxybutynin Chloride 5 Chloride 5 MG Oral MG Oral Tablet Tablet TAKE 1 TABLET TWICE DAILY Refills: 0 Active oxybutynin No oxybutynin chloride 5 chloride 5 mg/5 mL mg/5 mL oral syrup oral syrup Aspirin EC No 2 QD Aspirin EC 81 MG Oral 81 MG Oral Tablet Tablet Delayed Delayed Release Release TAKE 2 TABLET DAILY Refills: 3 Active oxycodone 5 No oxycodone mg/5 mL 5 mg/5 mL oral oral solution solution Lexapro 10 Yes 1 QD Lexapro 10 MG Oral MG Oral Tablet Tablet TAKE 1 TABLET DAILY. Quantity: 90 Refills: 0 Active vitamin B12 No vitamin 500 B12 500 mcg-folic mcg-folic acid 400 acid 400 mcg tablet mcg tablet Gabapentin Yes Q0.3333D Gabapentin 300 MG Oral 300 MG Capsule Oral Capsule TAKE 2 CAPSULES 3 TIMES DAILY. Refills: 0 Active Vitamin D3 No Vitamin D3 50 mcg 50 mcg (2,000 (2,000 unit) unit) capsule capsule Lantus No Lantus SoloStar SoloStar 100 UNIT/ML 100 SOLN UNIT/ML SOLN INJECT SUBCUTANEO USLY DIRECTED. Refills: 0 Active diazepam 5 No diazepam 5 mg tablet mg tablet Take one Take one tablet 30 tablet 30 minutes minutes prior to prior to test. Bring test. 2nd tablet Bring 2nd to tablet to facility. facility. Must have a Must have cat driver. a cat driver. Zyrtec 10 Yes 1 Zyrtec 10 MG TABS MG TABS TAKE 1 TABLET AT BEDTIME. Refills: 0 Active Valium 5 mg No Valium 5 tablet take mg tablet 1 pill 30 take 1 minutes pill 30 prior to minutes MRI, save prior to 2nd pill if MRI, save needed 2nd pill if needed famotidine No famotidine 20 mg 20 mg tablet tablet Centrum Yes 1 QD Centrum Silver Silver Ultra Ultra Womens Oral Womens Tablet Oral Tablet TAKE 1 TABLET DAILY. Refills: 0 Active Iron No Iron (ferrous (ferrous sulfate) sulfate) 325 mg (65 325 mg (65 mg iron) mg iron) tablet tablet Fluticasone No Q0.5D Fluticason Propionate e 50 MCG/ACT Propionate Nasal 50 MCG/ACT Suspension Nasal Suspension USE 1 SPRAY IN EACH NOSTRIL TWICE DAILY. Refills: 0 Active topiramate No topiramate 100 mg 100 mg tablet tablet Albuterol No Albuterol 90 MCG/ACT 90 MCG/ACT AERS AERS INHALE 1 TO 2 PUFFS EVERY 4 TO 6 HOURS NEEDED AND DIRECTED. Refills: 0 Active Percocet 5 No Percocet 5 mg-325 mg mg-325 mg tablet TAKE tablet 1 TAB PO Q TAKE 1 TAB 6 HRS X 3 PO Q 6 HRS DAYS, THEN X 3 DAYS, 1 TAB PO Q THEN 1 TAB 8 HRS X 3 PO Q 8 HRS DAYS, THEN X 3 DAYS, 1 TAB PO Q THEN 1 TAB 12 HRS X 1 PO Q 12 DAY PRN HRS X 1 POST OP DAY PRN PAIN POST OP PAIN Albuterol Yes Q0.25D Albuterol Sulfate Sulfate (2.5 (2.5 MG/3ML) MG/3ML) 0.083% 0.083% Inhalation Inhalation Nebulizatio Nebulizati n Solution on Solution USE 1 UNIT DOSE IN NEBULIZER 4 TIMES DAILY Refills: 0 Active promethazin No promethazi e 25 mg ne 25 mg tablet Take tablet 1 tablet(s) Take 1 TID PRN tablet(s) NAUSEA TID PRN NAUSEA Pantoprazol No 1 QD Pantoprazo e Sodium 40 le Sodium MG Oral 40 MG Oral Tablet Tablet Delayed Delayed Release Release TAKE 1 TABLET DAILY Refills: 3 Active Iron 325 Yes Q0.5D Iron 325 (65 Fe) MG (65 Fe) MG Oral Tablet Oral Tablet TAKE 1 TABLET TWICE DAILY WITH MEALS. Refills: 0 Active Vitamin C Yes 1 Q0.5D Vitamin C 500 MG Oral 500 MG Capsule Oral Capsule TAKE 1 CAPSULE TWICE DAILY Refills: 0 Active Clindamycin No Clindamyci HCl - 300 n HCl - MG Oral 300 MG Capsule Oral Capsule TAKE 2 CAPSULES PRIOR TO DENTAL APPTS AND PROCEDURES Refills: 0 Active NovoLIN Yes NovoLIN 70/30 70/30 (70-30) 100 (70-30) UNIT/ML 100 Subcutaneou UNIT/ML s Subcutaneo Suspension us Suspension USE DIRECTED. Refills: 0 Active 10 ML Vial acetaminoph No acetaminop en 300 hen 300 mg-codeine mg-codeine 30 mg 30 mg tablet tablet aspirin 81 No 1 BID aspirin 81 mg mg tablet,marcin tablet,del yed release ayed Take 1 release tablet Take 1 twice a day tablet by oral twice a route as day by directed oral route for 14 as days. directed for 14 days. atorvastati No atorvastat n 20 mg in 20 mg tablet 20 tablet 20 mg by oral mg by oral route. route. azithromyci No azithromyc n 250 mg in 250 mg tablet tablet cetirizine No cetirizine 1 mg/mL 1 mg/mL oral oral solution solution TAKE 10 ML TAKE 10 ML BY MOUTH BY MOUTH ONCE DAILY ONCE DAILY cetirizine No cetirizine 10 mg 10 mg tablet TAKE tablet 1 TABLET BY TAKE 1 MOUTH ONCE TABLET BY DAILY MOUTH ONCE DAILY diclofenac No diclofenac sodium 75 sodium 75 mg mg tablet,marcin tablet,del yed release ayed TAKE 1 release TABLET BY TAKE 1 MOUTH TWICE TABLET BY DAILY FOR MOUTH 15 DAYS TWICE DAILY FOR 15 DAYS escitalopra No escitalopr m 10 mg am 10 mg tablet TAKE tablet 1 TABLET BY TAKE 1 MOUTH ONCE TABLET BY DAILY MOUTH ONCE DAILY escitalopra No escitalopr m 5 mg/5 mL am 5 mg/5 oral mL oral solution solution ferrous No ferrous sulfate 220 sulfate mg (44 mg 220 mg (44 iron)/5 mL mg iron)/5 oral elixir mL oral TAKE 6.8 ML elixir BY MOUTH TAKE 6.8 TWICE DAILY ML BY MOUTH TWICE DAILY furosemide No furosemide 10 mg/mL 10 mg/mL oral oral solution solution furosemide No furosemide 40 mg 40 mg tablet TAKE tablet 1 TABLET BY TAKE 1 MOUTH ONCE TABLET BY DAILY MOUTH ONCE DAILY gabapentin No gabapentin 300 mg 300 mg capsule capsule TAKE 2 TAKE 2 CAPSULES BY CAPSULES MOUTH THREE BY MOUTH TIMES DAILY THREE TIMES DAILY hydrocodone No 1 Q7H hydrocodon 5 e 5 mg-acetamin mg-acetami ophen 325 nophen 325 mg tablet mg tablet TAKE 1 TAKE 1 TABLET BY TABLET BY MOUTH EVERY MOUTH 6 TO 8 EVERY 6 TO HOURS 8 HOURS Problems Condition Condition Condition Status Onset Resolution Last Treatin g Comments Name Details Category Date Date Treatment Clinician Date Lumbosacral Lumbosacral Problem Active spondylosis Spondylosis 2-05 without without 00:00: myelopathy Myelopathy 00 Multiple Multiple Problem Active joint pain Joint Pain 11-17 00:00: 00 Spondylosis Spondylosis Problem Active 11-17 00:00: 00 Degeneratio Degeneratio Problem Active n of n of 11-17 cervical Cervical 00:00: interverteb Interverteb 00 ral disc ral Disc Degeneratio Degeneratio Problem Active n of n of 11-17 interverteb Interverteb 00:00: ral disc ral Disc 00 Neck pain Neck Pain Problem Active 09-25 00:00: 00 Brachial Brachial Problem Active neuritis Neuritis 09-25 00:00: 00 Pain in Pain in Problem Active thoracic Thoracic 8 spine Spine 00:00: 00 Sciatica Sciatica Problem Active 09-25 00:00: 00 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 00:00: 00 Localized, Localized, Problem Active primary Primary 6-30 osteoarthri Osteoarthri 00:00: tis of the tis of the 00 wrist Wrist Low back Low Back Problem Active pain Pain 6-17 00:00: 00 Osteoarthri Osteoarthri Problem Active tis of knee tis of Knee 3-10 00:00: 00 Derangement Derangement Problem Active of knee of Knee 3-10 00:00: 00 Type 2 Type 2 Problem Active diabetes Diabetes 1-20 mellitus Mellitus 00:00: without without 00 complicatio Complicatio n n Idiopathic Idiopathic Problem Active peripheral Peripheral 1-20 neuropathy Neuropathy 00:00: 00 Urinary Urinary Problem Active tract Tract -20 infectious Infectious 00:00: disease Disease 00 Seizure Seizure Problem Active - 00:00: 00 History of History of Problem Active cardiovascu Cardiovascu - lar disease lar Disease 00:00: 00 Family Family Problem Active history of History of -20 diabetes Diabetes 00:00: mellitus Mellitus 00 Palpitation Palpitation Problem Active s s PVC PVC Problem Active (premature (premature ventricular ventricular contraction contraction ) ) Encounter Encounter Problem Active for for long-term long-term (current) (current) use of use of medications medications Cardiomyopa Cardiomyopa Problem Active thy thy Chronic Chronic Problem Active laryngitis laryngitis Hoarseness Hoarseness Problem Active or changing or changing voice voice LPRD LPRD Problem Active (laryngopha (laryngopha ryngeal ryngeal reflux reflux disease) disease) Mitral Mitral Problem Active valve valve disorder disorder Chest pain, Chest pain, Problem Active unspecified unspecified Essential Essential Problem Active hypertensio hypertensio n n Dilated Dilated Problem Active cardiomyopa cardiomyopa thy thy Thoracic Thoracic Problem Active aortic aortic aneurysm aneurysm without without rupture rupture Sinus Sinus Problem Active bradycardia bradycardia Type 2 Type 2 Problem Active diabetes diabetes mellitus mellitus with with insulin insulin therapy therapy Procedures Procedure Date / Time Performed Performing Clinician Navid quarles shoulder arthroscopy (SURG) 2019-12-30 00:00:00 XR, shoulder 2019-12-16 00:00:00 MRI, shoulder, w/o contrast 2019-12-16 00:00:00 OFFICE/OUTPATIENT VISIT EST 2019-12-04 15:15:00 DP-2D Echo 2019-12-03 00:00:00 MRI, cervical spine, w/o contrast 2019-11-05 00:00:00 EKG 2019-11-03 00:00:00 OFFICE/OUTPATIENT VISIT EST 2019-10-22 09:30:00 OFFICE/OUTPATIENT VISIT EST 2019-03-30 13:00:00 XR, cervical spine 2019-03-10 00:00:00 Gastric Bypass 2019-02-25 00:00:00 Colonoscopy 2019-02-25 00:00:00 OFFICE/OUTPATIENT VISIT EST 2018-12-23 08:00:00 OFFICE/OUTPATIENT VISIT EST 2018-09-29 14:00:00 OFFICE/OUTPATIENT VISIT EST 2018-08-22 08:15:00 OFFICE/OUTPATIENT VISIT EST 2018-06-24 08:15:00 OFFICE/OUTPATIENT VISIT EST 2018-05-07 09:45:00 Colonoscopy 2018-02-25 00:00:00 MEASURE BLOOD OXYGEN LEVEL 2018-02-24 13:00:00 OFFICE/OUTPATIENT VISIT EST 2018-02-24 13:00:00 OFFICE/OUTPATIENT VISIT EST 2018-02-05 08:45:00 OFFICE/OUTPATIENT VISIT EST 2017-12-25 10:00:00 OFFICE/OUTPATIENT VISIT EST 2017-12-19 11:00:00 OFFICE/OUTPATIENT VISIT EST 2017-10-23 09:45:00 OFFICE/OUTPATIENT VISIT EST 2017-06-14 09:00:00 OFFICE/OUTPATIENT VISIT EST 2017-02-13 08:45:00 Knee Joint Replacement 2017-02-05 00:00:00 OFFICE/OUTPATIENT VISIT EST 2017-01-23 13:30:00 OFFICE/OUTPATIENT VISIT EST 2016-11-16 13:30:00 Total Knee Arthroplasty (Surg) 2016-11-08 00:00:00 OFFICE/OUTPATIENT VISIT EST 2016-09-19 09:00:00 OFFICE/OUTPATIENT VISIT EST 2016-06-19 09:00:00 Knee Surgery 2016-02-26 00:00:00 Joint Replacement 2016-02-26 00:00:00 OFFICE/OUTPATIENT VISIT EST 2016-02-16 09:30:00 Colonoscopy 2015-02-25 00:00:00 OFFICE/OUTPATIENT VISIT, EST 2014-02-26 09:30:00 Carpal Tunnel Release 2014-02-25 00:00:00 X-RAY EXAM OF FOOT 2013-11-27 08:15:00 OFFICE/OUTPATIENT VISIT, EST 2013-11-27 08:15:00 ASSAY OF PARATHORMONE 2013-11-09 08:30:00 BASIC METABOLIC PANEL 2013-11-09 08:30:00 ASSAY OF VITAMIN D 2013-11-09 08:30:00 MICROALBUMIN, QUANTITATIVE 2013-11-09 08:30:00 ASSAY OF SERUM ALBUMIN 2013-11-09 08:30:00 COMPLETE CBC W/AUTO DIFF WBC 2013-11-09 08:30:00 ASSAY OF PHOSPHORUS 2013-11-09 08:30:00 ROUTINE VENIPUNCTURE 2013-11-09 08:30:00 OFFICE/OUTPATIENT VISIT, EST 2013-08-25 08:15:00 COMPLETE CBC W/AUTO DIFF WBC 2013-08-10 08:15:00 COMPREHEN METABOLIC PANEL 2013-08-10 08:15:00 ROUTINE VENIPUNCTURE 2013-08-10 08:15:00 IMMUNOASSAY,INFECTIOUS AGENT 2013-08-10 08:15:00 ASSAY OF AMYLASE 2013-08-10 08:15:00 X-RAY EXAM OF ABDOMEN 2013-08-10 08:15:00 OFFICE/OUTPATIENT VISIT, EST 2013-08-10 08:15:00 BASIC METABOLIC PANEL 2013-07-21 08:15:00 ROUTINE VENIPUNCTURE 2013-07-21 08:15:00 ROUTINE VENIPUNCTURE 2013-06-22 08:15:00 BASIC METABOLIC PANEL 2013-06-22 08:15:00 SPECIAL REPORTS OR FORMS 2013-06-08 00:00:00 ROUTINE VENIPUNCTURE 2013-06-04 09:45:00 MICROALBUMIN, QUANTITATIVE 2013-06-04 09:45:00 BASIC METABOLIC PANEL 2013-06-04 09:45:00 History of Gallbladder Surgery History of Neuroplasty Decompression Median Nerve At Carpal Tunnel History of Oophorectomy - Unilateral (Removal Of One Ovary) History of Knee Surgery Left History of Tubal Ligation History of Knee replacement Oophorectomy Tubal Ligation DIAGNOSTIC COLONOSCOPY Elbow Surgery Cholecystectomy CARPAL TUNNEL SURGERY Results Test Description Test Time Test Comments Text Results Atomic Results Result Comments DP-2D 2019-12-04 Echo 13:33:00 + ++-- + [facility] :: : [facility] : :: : [address] : :+ + [place] : : [address] + + Echocardiogr am Report Name: Brenda Streeter : 1960MRN: [id number] Age: 58 yrsAccount Number:[id number] Gender: FemaleOrdering Physician: Anselmo Seo Study Date: 12/04/2019 11:37 AM Reason For Study: EssentialReferring Physician: ARMANDO URBINA hypertensionPerformed By: GIFTY MAGANA^^^^ History: Hypertension Interpreting physician: Anselmo Seo MDHeight: 65 in Weight: 181 lb BSA: 1.9 m2 HR: 43 BP: 139/67 mmHg ___ProcedureA complete two-dimensional transthoracic echocardiogram was performedincluding 2D, M- mode, spectral and tissue Doppler and color flow Doppl er.Quality of the study is adequate. Interpretation SummaryLow naomi l LVEF 50 to 55%Normal LV wall thickness with mildly dilated left ventricleGrade 1 diastolic dysfun ction with normal left atrial pressureNormal RV size and functionMild tricuspid regurgitation wi th no suggestion of pulmonary tkdqwjczjiomCqlnszo-vo-fqzv mitral regurgitationMildly dilated proximal ascending aorta 3.7 cmPrevious echocardiogram 10/30/2017; reviewed images from prior study ofsignific antly poor quality compared with today's study.Mildly dilated left ventricle.Left ventricular syst olic function is mildly reduced. Ejection Fraction = 45-50%. Regional wall motion abnormalities ca nnot be excluded due to limitedvisualization.The right ventricle is normal in size and function.The aor tic valve is not well visualized. No hemodynamically significantvalvular aortic stenosis.Mild to moderate mitral regurgitation.There is mild to moderate tricuspid regurgitation.No Doppler evidence of pulmonary hypertension.Borderline dilated ascending aorta. Left VentricleDilated left ventricle, mild (LVDD 5.3 - 5.6 cm). No thrombus. No ventricularseptal defect visualized. Normal left ventricular wall thickness. Normal LVmass Index. Left ventricular systolic function is normal (54-74%). EjectionFraction = 50-55%. LV Diastolic Dysfunction is Grade I . No regional wallmotion abnormalities noted.Right Vent ricleThe right ventricle is normal size. Right ventricular systolic function isnormal.AtriaLe ft atrial size is normal. Normal Left Atrial Volume Index. Right atrial sizeis normal. IVC is normal. E stimation of RA pressure is normal (3mmHg). Theinteratrial septum is intact with no evidence for an atrial septal defect. Noevidence of interatrial shunt by color flow Doppler.Mitral ValveMitral valv e is normal. No evidence of mitral valve prolapse. No vegetationseen on the mitral valve. No mitral valve stenosis. Mild mitral regurgitation.Tricuspid ValveTricuspid valve is normal in appearance. No t ricuspid valve vegetation noted.No tricuspid stenosis. Mild tricuspid regurgitation. Doppler findings do notsuggest pulmonary hypertension.Aortic ValveThe aortic valve is trileaflet. The aortic valve ope ns well. No aorticvalvular vegetation. No hemodynamically significant valvular aortic stenosis.No aort ic insufficiency is present.Pulmonic ValvePulmonic valve is not well visualized. There is no pulmonic v alvular stenosis.Mild pulmonic valvular regurgitation.Great VesselsThe aortic root is normal size. Mil dy dilated ascending aorta. Pulmonaryartery is grossly normal.Pericardium/PleuralNo pericardial effu nazanin. No pleural effusion noted.MMode/2D Measurements & CalculationsRVDd: 3.7 cm LVIDd: 5.6 cmIVSd: 0.77 cm LVIDs: 4.5 cm LVPWd: 0.62 cmLV mass(C)d: 140.6 grams Ao root diam: 3.3 cmLV mass(C)dI: 74.2 grams/m2 Ao root area: 8.6 cm2 ACS: 2.3 cm LA dimension: 3.8 cmasc Aorta Diam: 3.7 cm LVOT diam: 2.5 c m LVOT area: 4.8 iv5FUUk ap4: 8.1 cm LVLd ap 2: 7.8 cmEDV(MOD-sp4): 132.0 ml EDV(MOD-sp2): 80.0 mlLVLs ap4: 6.8 cm ESV(MOD-sp2): 31.9 mlESV(MOD-sp4): 49.3 ml EF(MOD-sp2): 60.1 %EF(MOD-sp4): 62 .7 %SV(MOD-sp4): 82.7 ml SV(MOD-sp2): 48.1 mlTAPSE_phl: 2.3 cm RA A4Cs_phl: 19.9 cm2 RA Length_phl: 5.5 cm RA Width_phl: 4.1 cmRVIDd/LVIDd_phl: 0.66 LA a joanna A2: 19.7 cm2LA area A4: 20.3 cm2 LA Volume Index: 33.5 ml/i9Ohqqiko Mikaela surements & CalculationsMV E max filiberto: 50.9 cm/sec MV V2 max: 75.4 cm/secMV A max filiberto: 50.7 cm/sec MV max P.3 mmHgMV E/A: 1.0 MV V2 mean: 34.6 cm/se c MV mean P.59 mmHg MV V 2 VTI: 31.5 cm MVA(VTI): 3.9 cm2MV dec time: 0.24 sec Ao V2 max: 128.3 cm/sec Ao max P.6 mmHg Ao V2 mean: 95.7 cm/sec Ao mean P.9 mmHg Ao V2 VTI: 35.2 cm WILMER(I,D ): 3.5 cm2 WILMER(V,D): 3.6 cm2LV V1 max P.6 mmHg MR max filiberto: 293.4 cm/secLV V1 mean P.0 mmHg MR max P.4 mmHgLV V1 max: 9 4.6 cm/secLV V1 mean: 67.1 cm/secLV V1 VTI: 25.3 cmSV(LVOT): 122.0 ml PA acc time: 0 .16 secTR max filiberto: 217.2 cm/sec Med Peak E' Filiberto: 5.0 cm/secTR max P.9 mmHgRVSP(TR ): 21.9 mmHgLat Peak E' Filiberto: 7.7 cm/sec RAP systole: 3.0 mmHgPA pr(Accel): 6.1 mmHg WILMER(VTI)/BSA_phl: 1.9RV S Vel_phl: 11.6 cm/sec E/E' lat: 6.6E/E' med: 10.2 ___Electronically signed by:Anselmo Seo MD 01:33 PM CBC (INCLUDES DIFF/PLT) 2019-10-28 08:07:00 Test Item Value Reference Range Comments BASOPHILS (test code = 77663933) 1.0 % RED BLOOD CELL COUNT (test code = 01177423) 4.35 Million/uL 3.80 -5.10 MCHC (test code = 48395339) 33.2 g/dL 32.0-36.0 EOSINOPHILS (test code = 97575799) 2.7 % RDW (test code = 21685630) 13.0 % 11.0-15.0 HEMATOCRIT (test code = 34312248) 42.2 % 35.0-45.0 MONOCYTES (test code = 10448104) 5.7 % PLATELET COUNT (test code = 69266240) 283 Thousand/uL 140-400 ABSOLUTE NEUTROPHILS (test code = 19420094) 3792 cells/uL 1500 -7800 ABSOLUTE MONOCYTES (test code = 70889912) 342 cells/uL 200-95 0 MCV (test code = 57978911) 97.0 fL 80.0-100.0 MPV (test code = 55873814) 9.6 fL 7.5-12.5 MCH (test code = 72086755) 32.2 pg 27.0-33.0 LYMPHOCYTES (test code = 91669703) 27.4 % ABSOLUTE BASOPHILS (test code = 81009946) 60 cells/uL 0-200 ABSOLUTE EOSINOPHILS (test code = 03012378) 162 cells/uL 15-5 00 NEUTROPHILS (test code = 05520642) 63.2 % HEMOGLOBIN (test code = 07606371) 14.0 g/dL 11.7-15.5 ABSOLUTE LYMPHOCYTES (test code = 19013821) 1644 cells/uL 850- 3900 ALBUMIN, RANDOM URINE W/O [id number] 08:07:00See BelowSee Below COMPREHENSIVE METABOLIC [id number] 08:07:00 Test Item Value Reference Range Comments ALT (test code = 38890524) 37 U/L 6-29 CHLORIDE (test code = 108 mmol/L 98-110 80678528) eGFR NON-AFR. GABONESE (test 92 mL/min/1.73m2 > OR = 60 code = 75879345) CREATININE (test code = 0.72 mg/dL 0.50-1.05 87144024) eGFR (test 106 mL/min/1.73m2 > OR = 60 code = 48492241) SODIUM (test code = 10516725) 142 mmol/L 135-146 CARBON DIOXIDE (test code = 26 mmol/L 20-32 93652728) CALCIUM (test code = 9.3 mg/dL 8.6-10.4 14771451) ALKALINE PHOSPHATASE (test 75 U/L 37-153 code = 32188676) BUN/CREATININE RATIO (test NOT APPLICABLENOT APPLICABLE 6-22 code = 99650373) (calc) POTASSIUM (test code = 4.1 mmol/L 3.5-5.3 38002016) UREA NITROGEN (BUN) (test 21 mg/dL 7-25 code = 49991694) AST (test code = 73878247) 36 U/L 10-35 GLOBULIN (test code = 2.8 g/dL (calc) 1.9-3.7 94970756) PROTEIN, TOTAL (test code = 6.7 g/dL 6.1-8.1 29409086) ALBUMIN/GLOBULIN RATIO (test 1.4 (calc) 1.0-2.5 code = 52395891) BILIRUBIN, TOTAL (test code = 0.4 mg/dL 0.2-1.2 03975827) ALBUMIN (test code = 3.9 g/dL 3.6-5.1 34753122) LIPID PANEL, [id number] 08:07:00 Test Item Value Reference Range Comments NON HDL CHOLESTEROL (test code = 28407673) 75 mg/dL (calc) <130 HDL CHOLESTEROL (test code = 62751876) 51 mg/dL > OR = 50 CHOL/HDLC RATIO (test code = 38720701) 2.5 (calc) <5.0 LDL-CHOLESTEROL (test code = 54851256) 5959 mg/dL (calc) TRIGLYCERIDES (test code = 28888755) 8484 mg/dL <150 VITAMIN D,25-OH,TOTAL,[id number] 08:07:0059BASIC METABOLIC [id number] 08:26:00 Test Item Value Reference Range Comments SODIUM (test code = 90604863) 140 mmol/L 135-146 eGFR (test code = 72 mL/min/1.73m2 > OR = 60 80465822) CREATININE (test code = 38204703) 0.99 mg/dL 0.50-1.05 GLUCOSE (test code = 67911221) 94 mg/dL 65-99 CARBON DIOXIDE (test code = 18700773) 26 mmol/L 20-32 CHLORIDE (test code = 75134236) 106 mmol/L 98-110 CALCIUM (test code = 84332066) 9.7 mg/dL 8.6-10.4 POTASSIUM (test code = 88264821) 4.3 mmol/L 3.5-5.3 UREA NITROGEN (BUN) (test code = 74827433) 35 mg/dL 7-25 BUN/CREATININE RATIO (test code = 11757447) 35 (calc) 6-22 eGFR NON-AFR. GABONESE (test code = 62 mL/min/1.73m2 > OR = 60 11146389) CULTURE, URINE, [id number] 00:00:00SEE NOTECULTURE, URINE, ROUTINE 2017-12-26 08:44:00SEE NOTEHemoglobin A1C (Performed Elsewhere)\S\2017-10-31 09:33:00 Test Item Value Reference Range Comments HgbA1C (Performed Elsewhere) (test code = 4548-4) 8.0 % 4-5.6 Microalbumin, Urine (Performed Elsewhere)\S\2017-07-18 11:06:00 Test Item Value Reference Range Comments Microalbumin (test code = 86006-4) >1.30 mg <30mg Microalbumin / Creatinine Ratio (Performed Elsewhere)\S\2017-07-18 11:06:00 Test Item Value Reference Range Comments Microalbumin / Creatinine Ratio (Performed >2.06 mg/g <30 Elsewhere) (test code = 9318-7) Hemoglobin A1C (Performed Elsewhere)\S\2017-07-18 11:05:00 Test Item Value Reference Range Comments HgbA1C (Performed Elsewhere) (test code = 4548-4) 8.4 % 4-5.6 Iron and [id number] 00:01:00 Test Item Value Reference Range Comments Iron, Total (test code = 824671) 70 ug/dL 45-160 %SAT (test code = 337333) 15 % 11-50 UIBC (test code = 752539) 392 ug/dL 125-400 TIBC (test code = 128584) 462 ug/dL 250-450 CMP with Estimated [id number] 00:01:00 Test Item Value Reference Range Comments Sodium (test code = 279757) 138 mmol/L 135-146 Total Protein (test code = 798519) 6.8 g/dL 6.1-8.1 Albumin (test code = 764856) 3.9 g/dL 3.6-5.1 Est GFR, NonAfrican [place] (test code = 708465) 49 mL/min >=60 ALT/SGPT (test code = 564661) 12 U/L 6-29 Potassium (test code = 255758) 4.4 mmol/L 3.5-5.3 AST/SGOT (test code = 406537) 18 U/L 10-35 Bilirubin, Total (test code = 947398) 0.3 mg/dL 0.2-1.2 Alkaline Phosphatase (test code = 439409) 38 U/L 33-130 Glucose (test code = 374872) 106 mg/dL 65-99 Est GFR, (test code = 480396) 56 mL/min > =60 Calcium (test code = 066001) 9.3 mg/dL 8.6-10.4 CO2 (test code = 188744) 24 mmol/L 20-31 Creatinine (test code = 809942) 1.23 mg/dL 0.50-1.05 BUN (test code = 738388) 25 mg/dL 7-25 Chloride (test code = 950699) 106 mmol/L 98-110 Urinalysis, [id number] 00:01:00 Test Item Value Reference Range Comments Bilirubin (test code = 718829) NEGATIVE NEGATIVE WBC (test code = 220848) NONE SEEN WBC/HPF <=5 Glucose (test code = 153068) NEGATIVE NEGATIVE Bacteria (test code = 994681) NONE SEEN HPF NONE SEEN Squamous Epithelial (test code = 792102) 0-5 HPF <=5 Protein (test code = 449636) NEGATIVE NEGATIVE Specific [place] (test code = 770479) 1.020 1.001-1.03 5 Ketone (test code = 377803) NEGATIVE NEGATIVE Crystals (test code = 305765) See Below HPF NONE SEEN pH (test code = 698525) 7.0 5.0-8.0 Occult Blood (test code = 488403) NEGATIVE NEGATIVE RBC (test code = 630010) NONE SEEN RBC/HPF <=2 Leukocyte Esterase (test code = 661853) NEGATIVE NEGATIVE Appearance (test code = 354484) CLOUDY CLEAR Color (test code = 807614) YELLOW YELLOW Nitrite (test code = 094434) NEGATIVE NEGATIVE Yeast (test code = 44878794) NONE SEEN HPF NONE SEEN Casts (test code = 711767) NONE SEEN LPF NONE SEEN Phosphate (as Phosphorus)2017-03-04 00:01:00 Test Item Value Reference Range Comments Phosphorus (test code = 708687) 3.8 mg/dL 2.5-4.5 Vitamin D, 25-Hydroxy, [id number] 00:01:00 Test Item Value Reference Range Comments Vitamin D (25-Hydroxy) (test code = 644389) 28 ng/mL 30-1 00 CBC with [id number] 00:01:00 Test Item Value Reference Range Comments Absolute Eos (test code = 585 cells/uL 15-500 185055) Absolute Baso (test code = 65 cells/uL 0-200 073586) Lymph % (test code = 780368) 36 % MCV (test code = 527169) 96.5 fL 80.0-100.0 Neutrophils % (test code = 47 % 064053) RBC (test code = 200774) 3.73 MIL/uL 3.80-5.10 Absolute Lymph (test code = 2340 cells/uL 850-3900 754216) Hematocrit (test code = 887161) 36.0 % 35.0-45.0 Hemoglobin (test code = 640023) 11.3 g/dL 11.7-15.5 MCH (test code = 190187) 30.3 pg 27.0-33.0 WBC (test code = 584539) 6.5 K/uL 3.8-10.8 Baso % (test code = 746026) 1 % [place] % (test code = 211731) 7 % RDW (test code = 583736) 13.6 % 11.0-15.0 MCHC (test code = 048586) 31.4 g/dL 32.0-36.0 Platelet Count (test code = 399 K/uL 140-400 820293) MPV (test code = 717722) 9.2 fL 7.5-12.5 Absolute [place] (test code = 455 cells/uL 200-950 611579) Absolute Neut (test code = 3055 cells/uL 6245-8875 182075) Smear Review (test code = Criteria for review not met 270455) Eos % (test code = 477906) 9 % PTH, Intact and [id number] 00:01:00 Test Item Value Reference Range Comments Parathyroid Hormone (test code = 212715) 19 pg/mL 14-64 Calcium (test code = 609501) 9.3 mg/dL 8.6-10.4 CMP with Estimated [id number] 00:01:00 Test Item Value Reference Range Comments Glucose (test code = 244900) 228 mg/dL 65-99 Est GFR, NonAfrican [place] (test code = 551233) 41 mL/min >=60 Potassium (test code = 062685) 4.6 mmol/L 3.5-5.3 Chloride (test code = 542595) 100 mmol/L 98-110 Creatinine (test code = 153414) 1.42 mg/dL 0.50-1.05 Sodium (test code = 490528) 138 mmol/L 135-146 Alkaline Phosphatase (test code = 190005) 33 U/L 33-130 ALT/SGPT (test code = 541724) 12 U/L 6-29 Calcium (test code = 106881) 9.1 mg/dL 8.6-10.4 Albumin (test code = 623674) 3.8 g/dL 3.6-5.1 CO2 (test code = 604595) 30 mmol/L 20-31 AST/SGOT (test code = 189244) 17 U/L 10-35 Est GFR, (test code = 801655) 47 mL/min > =60 BUN (test code = 316375) 29 mg/dL 7-25 Total Protein (test code = 660276) 6.3 g/dL 6.1-8.1 Bilirubin, Total (test code = 871379) 0.4 mg/dL 0.2-1.2 CBC with [id number] 00:01:00 Test Item Value Reference Range Comments Eos % (test code = 719809) 9 % Lymph % (test code = 525398) 31 % Absolute Neut (test code = 3796 cells/uL 6781-9941 282426) Platelet Count (test code = 493 K/uL 140-400 035014) MCHC (test code = 844842) 31.2 g/dL 32.0-36.0 Smear Review (test code = Criteria for review not met 052625) Baso % (test code = 065073) 1 % MCH (test code = 885210) 30.3 pg 27.0-33.0 Hematocrit (test code = 595947) 33.7 % 35.0-45.0 [place] % (test code = 649206) 7 % MCV (test code = 198118) 97.1 fL 80.0-100.0 RDW (test code = 364838) 13.8 % 11.0-15.0 Absolute [place] (test code = 511 cells/uL 200-950 536280) Neutrophils % (test code = 52 % 868230) Absolute Baso (test code = 73 cells/uL 0-200 743144) Absolute Lymph (test code = 2263 cells/uL 850-3900 972941) Absolute Eos (test code = 657 cells/uL 15-500 312290) Hemoglobin (test code = 514498) 10.5 g/dL 11.7-15.5 WBC (test code = 211874) 7.3 K/uL 3.8-10.8 RBC (test code = 733914) 3.47 MIL/uL 3.80-5.10 MPV (test code = 743482) 9.0 fL 7.5-12.5 Iron and [id number] 00:01:00 Test Item Value Reference Range Comments TIBC (test code = 184950) 434 ug/dL 250-450 Iron, Total (test code = 805006) 66 ug/dL 45-160 UIBC (test code = 715902) 368 ug/dL 125-400 %SAT (test code = 349182) 15 % 11-50 CBC with [id number] 00:01:00 Test Item Value Reference Range Comments Neutrophils % (test code = 53 % 541157) Baso % (test code = 255924) 1 % Absolute [place] (test code = 378 cells/uL 200-950 975125) Absolute Baso (test code = 63 cells/uL 0-200 516570) Smear Review (test code = Criteria for review not met 481993) Eos % (test code = 930466) 10 % MCV (test code = 769518) 97.5 fL 80.0-100.0 Lymph % (test code = 682091) 30 % Hemoglobin (test code = 835098) 10.8 g/dL 11.7-15.5 Platelet Count (test code = 500 K/uL 140-400 323747) WBC (test code = 759458) 6.3 K/uL 3.8-10.8 RDW (test code = 783550) 13.9 % 11.0-15.0 MCHC (test code = 233215) 30.9 g/dL 32.0-36.0 RBC (test code = 853914) 3.58 MIL/uL 3.80-5.10 MCH (test code = 270556) 30.2 pg 27.0-33.0 MPV (test code = 425571) 8.6 fL 7.5-12.5 Absolute Eos (test code = 630 cells/uL 15-500 105673) Hematocrit (test code = 182003) 34.9 % 35.0-45.0 Absolute Lymph (test code = 1890 cells/uL 850-3900 968331) [place] % (test code = 706224) 6 % Absolute Neut (test code = 3339 cells/uL 2703-9404 849100) CMP with Estimated [id number] 00:01:00 Test Item Value Reference Range Comments Calcium (test code = 394074) 9.2 mg/dL 8.6-10.4 Est GFR, NonAfrican [place] (test code = 756386) 43 mL/min >=60 ALT/SGPT (test code = 635555) 9 U/L 6-29 CO2 (test code = 373946) 21 mmol/L 20-31 Potassium (test code = 649598) 4.6 mmol/L 3.5-5.3 Chloride (test code = 864605) 108 mmol/L 98-110 Creatinine (test code = 417501) 1.37 mg/dL 0.50-1.05 Est GFR, (test code = 583281) 50 mL/min > =60 Alkaline Phosphatase (test code = 892365) 32 U/L 33-130 Bilirubin, Total (test code = 912713) 0.4 mg/dL 0.2-1.2 Total Protein (test code = 830819) 6.6 g/dL 6.1-8.1 Sodium (test code = 228769) 139 mmol/L 135-146 AST/SGOT (test code = 978626) 18 U/L 10-35 BUN (test code = 981147) 38 mg/dL 7-25 Glucose (test code = 962041) 175 mg/dL 65-99 Albumin (test code = 418289) 3.9 g/dL 3.6-5.1 Culture, [id number] 14:52:00 Test Item Value Reference Range Comments FINAL REPORT (test code = FR) NO GROWTH Hemoglobin\S\2016-11-16 14:51:00 Test Item Value Reference Range Comments Hemoglobin (test code = HGB) 10.2 mg/dL (Age/Gender-Based) CMP with Estimated [id number] 00:01:00 Test Item Value Reference Range Comments Est GFR, (test code = 790506) 29 mL/min > =60 Total Protein (test code = 524719) 5.9 g/dL 6.1-8.1 ALT/SGPT (test code = 498884) 17 U/L 6-29 Est GFR, NonAfrican [place] (test code = 014271) 25 mL/min >=60 Sodium (test code = 066892) 139 mmol/L 135-146 Alkaline Phosphatase (test code = 590816) 32 U/L 33-130 Glucose (test code = 010558) 147 mg/dL 65-99 Potassium (test code = 793835) 5.3 mmol/L 3.5-5.3 Chloride (test code = 326786) 103 mmol/L 98-110 Bilirubin, Total (test code = 717701) 0.4 mg/dL 0.2-1.2 CO2 (test code = 897766) 27 mmol/L 20-31 Calcium (test code = 818218) 9.1 mg/dL 8.6-10.4 Albumin (test code = 204434) 3.5 g/dL 3.6-5.1 Creatinine (test code = 200232) 2.17 mg/dL 0.50-1.05 AST/SGOT (test code = 150227) 29 U/L 10-35 BUN (test code = 447713) 48 mg/dL 7-25 CBC NO Diff (Complete Blood Count)2016-11-16 00:01:00 Test Item Value Reference Range Comments Platelet Count (test code = 892612) 460 K/uL 140-400 WBC (test code = 660557) 6.5 K/uL 3.8-10.8 RDW (test code = 657277) 13.5 % 11.0-15.0 MPV (test code = 832776) 9.4 fL 7.5-12.5 Hematocrit (test code = 840653) 31.2 % 35.0-45.0 Hemoglobin (test code = 248488) 9.9 g/dL 11.7-15.5 MCH (test code = 804186) 30.1 pg 27.0-33.0 MCHC (test code = 314552) 31.7 g/dL 32.0-36.0 MCV (test code = 403150) 94.8 fL 80.0-100.0 RBC (test code = 356236) 3.29 MIL/uL 3.80-5.10 Urinalysis, [id number] 14:33:00 Test Item Value Reference Range Comments Crystals (test code = 675288) NONE SEEN HPF NONE SEEN pH (test code = 416251) 5.0 5.0-8.0 Glucose (test code = 373609) NEGATIVE NEGATIVE Color (test code = 094079) DARK YELLOW YELLOW Bilirubin (test code = 662803) NEGATIVE NEGATIVE Yeast (test code = 30233694) NONE SEEN HPF NONE SEEN Protein (test code = 610980) NEGATIVE NEGATIVE Bacteria (test code = 068355) FEW HPF NONE SEEN Ketone (test code = 404222) TRACE NEGATIVE RBC (test code = 686563) 0-2 RBC/HPF <=2 Appearance (test code = 467085) CLEAR CLEAR Casts (test code = 463891) NONE SEEN LPF NONE SEEN Squamous Epithelial (test code = 958816) 0-5 HPF <=5 WBC (test code = 434367) 0-5 WBC/HPF <=5 Leukocyte Esterase (test code = 998103) TRACE NEGATIVE Specific [place] (test code = 690841) 1.020 1.001-1.03 5 Occult Blood (test code = 565602) NEGATIVE NEGATIVE Nitrite (test code = 831984) NEGATIVE NEGATIVE [id number] 14:33:00 Test Item Value Reference Range Comments Albumin (test code = 851280) 4.2 g/dL 3.6-5.1 Vitamin D, 25-Hydroxy, [id number] 14:33:00 Test Item Value Reference Range Comments Vitamin D (25-Hydroxy) (test code = 261663) 31 ng/mL 30-1 00 PTH, Intact (without Calcium)2016-08-01 14:33:00 Test Item Value Reference Range Comments Parathyroid Hormone (test code = 765087) 35 pg/mL 14-64 CBC with [id number] 14:33:00 Test Item Value Reference Range Comments Absolute Lymph (test code = 2380 cells/uL 850-3900 662943) Baso % (test code = 557224) 1 % Smear Review (test code = Criteria for review not met 756530) MPV (test code = 860472) 9.0 fL 7.5-12.5 Eos % (test code = 546864) 8 % [place] % (test code = 046788) 7 % Absolute Baso (test code = 68 cells/uL 0-200 088077) Platelet Count (test code = 374 K/uL 140-400 414836) Lymph % (test code = 380276) 35 % Neutrophils % (test code = 49 % 483238) Hemoglobin (test code = 858863) 13.0 g/dL 11.7-15.5 MCHC (test code = 998953) 33.2 g/dL 32.0-36.0 Hematocrit (test code = 973574) 39.1 % 35.0-45.0 Absolute Neut (test code = 3332 cells/uL 4754-7036 337390) WBC (test code = 333584) 6.8 K/uL 3.8-10.8 MCH (test code = 189077) 31.2 pg 27.0-33.0 MCV (test code = 791757) 93.8 fL 80.0-100.0 RBC (test code = 006833) 4.17 MIL/uL 3.80-5.10 RDW (test code = 089201) 13.3 % 11.0-15.0 Absolute [place] (test code = 476 cells/uL 200-950 980266) Absolute Eos (test code = 544 cells/uL 15-500 028666) Phosphate (as Phosphorus)2016-08-01 14:33:00 Test Item Value Reference Range Comments Phosphorus (test code = 994963) 4.7 mg/dL 2.5-4.5 Microalbumin Creatinine [id number] 14:33:00 Test Item Value Reference Range Comments Microalbumin (test code = 716887) 3.4 mg/dL Not estab Microalbumin/Creatinine Ratio (test code = 10 mcg/mg creat <30 746399) Creatinine, Urine (test code = 889951) 326 mg/dL 20-320 BMP with Estimated [id number] 14:33:00 Test Item Value Reference Range Comments Sodium (test code = 669236) 141 mmol/L 135-146 Chloride (test code = 836851) 106 mmol/L 98-110 Est GFR, NonAfrican [place] (test code = 840037) 43 mL/min >=60 Potassium (test code = 343285) 4.2 mmol/L 3.5-5.3 Est GFR, (test code = 267941) 50 mL/min > =60 BUN (test code = 273873) 19 mg/dL 7-25 Glucose (test code = 120116) 76 mg/dL 65-99 Calcium (test code = 672142) 9.3 mg/dL 8.6-10.4 Creatinine (test code = 590760) 1.37 mg/dL 0.50-1.05 CO2 (test code = 040403) 23 mmol/L 20-31 Microalbumin Creatinine [id number] 15:19:00 Test Item Value Reference Range Comments Microalbumin/Creatinine Ratio (test code = 1 mcg/mg creat <30 315527) Creatinine, Urine (test code = 977584) 142 mg/dL 20-320 Microalbumin (test code = 068960) 0.2 mg/dL Not estab Urinalysis, [id number] 15:19:00 Test Item Value Reference Range Comments Yeast (test code = 46566698) NONE SEEN HPF NONE SEEN Color (test code = 333149) YELLOW YELLOW Specific [place] (test code = 885324) 1.017 1.001-1.03 5 Casts (test code = 480106) NONE SEEN LPF NONE SEEN Protein (test code = 695594) NEGATIVE NEGATIVE Nitrite (test code = 044042) NEGATIVE NEGATIVE RBC (test code = 141990) 0-2 RBC/HPF <=2 WBC (test code = 645857) 0-5 WBC/HPF <=5 pH (test code = 129620) 5.0 5.0-8.0 Occult Blood (test code = 916738) NEGATIVE NEGATIVE Bacteria (test code = 579068) NONE SEEN HPF NONE SEEN Squamous Epithelial (test code = 113184) NONE SEEN HPF <=5 Appearance (test code = 382511) CLEAR CLEAR Glucose (test code = 675384) NEGATIVE NEGATIVE Ketone (test code = 716432) NEGATIVE NEGATIVE Leukocyte Esterase (test code = 362986) 1+ NEGATIVE Bilirubin (test code = 739070) NEGATIVE NEGATIVE Crystals (test code = 346924) NONE SEEN HPF NONE SEEN BMP with Estimated [id number] 15:19:00 Test Item Value Reference Range Comments Potassium (test code = 193486) 4.1 mmol/L 3.5-5.3 Est GFR, NonAfrican [place] (test code = 413464) 38 mL/min >=60 Calcium (test code = 181423) 9.4 mg/dL 8.6-10.4 Est GFR, (test code = 132585) 44 mL/min > =60 Creatinine (test code = 963261) 1.53 mg/dL 0.50-1.05 Chloride (test code = 341417) 101 mmol/L 98-110 CO2 (test code = 437918) 26 mmol/L 20-31 Sodium (test code = 337755) 139 mmol/L 135-146 Glucose (test code = 878664) 124 mg/dL 65-99 BUN (test code = 186394) 39 mg/dL 7-25 CMP with Estimated [id number] 00:01:00 Test Item Value Reference Range Comments ALT/SGPT (test code = 764310) 19 U/L 6-29 AST/SGOT (test code = 276854) 26 U/L 10-35 Total Protein (test code = 378133) 7.0 g/dL 6.1-8.1 Albumin (test code = 621220) 4.2 g/dL 3.6-5.1 Sodium (test code = 719636) 137 mmol/L 135-146 Chloride (test code = 845480) 99 mmol/L 98-110 Est GFR, NonAfrican [place] (test code = 030993) 38 mL/min >=60 Glucose (test code = 438745) 237 mg/dL 65-99 Alkaline Phosphatase (test code = 715588) 41 U/L 33-130 Calcium (test code = 416708) 9.7 mg/dL 8.6-10.4 Bilirubin, Total (test code = 019193) 0.3 mg/dL 0.2-1.2 BUN (test code = 294934) 41 mg/dL 7-25 Est GFR, (test code = 404501) 44 mL/min > =60 CO2 (test code = 431707) 28 mmol/L 20-31 Potassium (test code = 855639) 4.3 mmol/L 3.5-5.3 Creatinine (test code = 247618) 1.51 mg/dL 0.50-1.05 CMP with Estimated [id number] 00:01:00 Test Item Value Reference Range Comments Total Protein (test code = 659237) 6.7 g/dL 6.1-8.1 Sodium (test code = 465808) 140 mmol/L 135-146 Chloride (test code = 706648) 107 mmol/L 98-110 BUN (test code = 298987) 26 mg/dL 7-25 AST/SGOT (test code = 196551) 23 U/L 10-35 Est GFR, NonAfrican [place] (test code = 374623) 49 mL/min >=60 Potassium (test code = 528841) 4.4 mmol/L 3.5-5.3 CO2 (test code = 624951) 25 mmol/L 20-31 Est GFR, (test code = 538944) 57 mL/min > =60 Creatinine (test code = 061052) 1.23 mg/dL 0.50-1.05 Albumin (test code = 068451) 3.9 g/dL 3.6-5.1 Glucose (test code = 174291) 137 mg/dL 65-99 ALT/SGPT (test code = 946000) 19 U/L 6-29 Calcium (test code = 398271) 9.4 mg/dL 8.6-10.4 Bilirubin, Total (test code = 265996) 0.4 mg/dL 0.2-1.2 Alkaline Phosphatase (test code = 752970) 33 U/L 33-130 LYTES [id number] 08:06:00 Test Item Value Reference Range Comments CA (test code = CA) 9.1 MG/DL 8.5-10.1 NA (test code = NA) 140 MMOL/L 136-145 ION GAP (test code = ION GAP) 13 4-16 BUN/CREAT RATIO (test code = BUN/CREAT RATIO) 12 10 -14 BUN (test code = BUN) 17 MG/DL 7-18 GLU (test code = GLU) 96 MG/DL 70-110 CL (test code = CL) 105 MMOL/L 98-110 CO2 (test code = CO2) 25.7 MMOL/L 21.0-32.0 K (test code = K) 3.5 MMOL/L 3.5-5.1 CR (test code = CR) 1.4 MG/DL 0.4-1.3 [id number] 08:06:00 Test Item Value Reference Range Comments ALB (test code = ALB) 3.6 G/DL 3.2-4.7 [id number] 08:06:00 Test Item Value Reference Range Comments UCR (test code = UCR) 343.0 MG/DL 30.0-125.0 UALB/UCR RATIO (test code = UALB/UCR RATIO) 1 MG/DL UALB (test code = UALB) 4.1 MG/L 1.3-20.0 CBC WITH [id number] 08:06:00 Test Item Value Reference Range Comments MCHC (test code = MCHC) 32.9 G/DL 32.0-35.5 MCH (test code = MCH) 29.7 PQ 26.8-33.2 MCV (test code = MCV) 90 FL 79-95 WBC (test code = WBC) 7.0 K/UL 3.6-11.1 RDW (test code = RDW) 17.1 H % 12.0-15.1 GR% (test code = GR%) 49.9 % 43.3-71.9 LY% (test code = LY%) 36.7 % 16.8-43.5 HCT (test code = HCT) 37.3 L % 33.3-41.4 LY# (test code = LY#) 2.6 K/uL 1.1-2.7 EO% (test code = EO%) 11.1 H % 0.0-7.8 MO# (test code = MO#) 0.1 # 0.3-0.8 RBC (test code = RBC) 4.13 L M/uL 3.69-4.88 HGB (test code = HGB) 12.3 L G/DL 11.4-14.4 EO# (test code = EO#) 0.8 H # 0.0-0.5 MPV (test code = MPV) 8.6 FL 7.5-10.7 GR# (test code = GR#) 3.5 K/uL 1.9-7.2 BA# (test code = BA#) 0.0 K/uL 0.0-0.1 BA% (test code = BA%) 0.4 % 0.0-1.1 PLT (test code = PLT) 438 H K/UL 165-353 MO% (test code = MO%) 1.9 L % 4.6-12.4 25 OH VITAMIN D [id number] 08:06:00 Test Item Value Reference Range Comments VIT D (test code = VIT D) 43 N NG/ML 30-100 PARATHYROID [id number] 08:06:00 Test Item Value Reference Range Comments PTH (test code = PTH) 22.4 PG/ML 8.2-83.5 [id number] 08:06:00 Test Item Value Reference Range Comments PHOS (test code = PHOS) 3.3 MG/DL 2.5-4.9 CBC W/DIFF [id number] 09:45:00 Test Item Value Reference Range Comments WBC (test code = WBC) 9.3 K/UL 3.6-11.1 EO# (test code = EO#) 0.7 H K/uL 0.0-0.5 HCT (test code = HCT) 36.1 % 33.3-41.4 BA% (test code = BA%) 0.3 % 0.0-1.1 MPV (test code = MPV) 8.3 FL 7.5-10.7 RBC (test code = RBC) 4.00 CU/MM 3.69-4.88 MCH (test code = MCH) 30.2 PQ 26.8-33.2 RDW (test code = RDW) 13.4 % 12.0-15.1 LY% (test code = LY%) 25.8 % 16.8-43.5 MCHC (test code = MCHC) 33.4 G/DL 33.5-35.5 MO% (test code = MO%) 5.3 % 4.6-12.4 BA# (test code = BA#) 0.0 K/uL 0.0-0.1 MCV (test code = MCV) 90 FL 79-95 MO# (test code = MO#) 0.5 # 0.3-0.8 PLT (test code = PLT) 460 H K/UL 165-353 EO% (test code = EO%) 7.9 H % 0.0-7.8 HGB (test code = HGB) 12.1 G/DL 11.4-14.4 NE# (test code = NE#) 5.7 # 1.9-7.2 LY# (test code = LY#) 2.4 # 1.1-2.7 NE% (test code = NE%) 60.7 % 43.3-71.9 [id number] 09:45:00 Test Item Value Reference Range Comments SHAGGY (test code = SHAGGY) 24 U/L 25-115 H. [id number] 09:45:00 Test Item Value Reference Range Comments HPYL (test code = HPYL) Negative Negative Lipase, [id number] 09:45:00 Test Item Value Reference Range Comments Sendouts (test code = Sendouts) Sent to [facility] Sendouts (test code = Sendouts6) Sent to [facility] CHEM [id number] 09:45:00 Test Item Value Reference Range Comments ALK PHOS (test code = ALK PHOS) 28 U/L 50-136 BILT (test code = BILT) 0.2 MG/DL 0.1-1.0 CO2 (test code = CO2) 24.9 MMOL/L 21.0-32.0 BUN/CREAT RATIO (test code = BUN/CREAT RATIO) 10 10 -14 K (test code = K) 3.8 MMOL/L 3.5-5.1 GLOB (test code = GLOB) 3.6 1.9-4.5 AST (test code = AST) 43 U/L 9-37 ALB (test code = ALB) 3.4 G/DL 3.2-4.7 ION GAP (test code = ION GAP) 15 4-16 CA (test code = CA) 8.8 MG/DL 8.5-10.1 EGFR (test code = EGFR) 38.51 >60.00 CR (test code = CR) 1.5 MG/DL 0.4-1.3 BUN (test code = BUN) 15 MG/DL 7-18 GLU (test code = GLU) 101 MG/DL 70-110 CL (test code = CL) 106 MMOL/L 98-110 NA (test code = NA) 142 MMOL/L 136-145 ALT (test code = ALT) 32 U/L 9-61 TP (test code = TP) 7.0 G/DL 6.9-8.5 EGFRAA (test code = EGFRAA) 46.67 >60.00 LYTES [id number] 07:51:00 Test Item Value Reference Range Comments GLU (test code = GLU) 90 MG/DL 70-110 NA (test code = NA) 141 MMOL/L 136-145 CR (test code = CR) 1.5 MG/DL 0.4-1.3 ION GAP (test code = ION GAP) 13 4-16 CA (test code = CA) 9.4 MG/DL 8.5-10.1 CO2 (test code = CO2) 27.3 MMOL/L 21.0-32.0 CL (test code = CL) 105 MMOL/L 98-110 BUN/CREAT RATIO (test code = BUN/CREAT RATIO) 15 10 -14 K (test code = K) 3.8 MMOL/L 3.5-5.1 BUN (test code = BUN) 23 MG/DL 7-18 LYTES [id number] 08:07:00 Test Item Value Reference Range Comments ION GAP (test code = ION GAP) 16 4-16 GLU (test code = GLU) 87 MG/DL 70-110 NA (test code = NA) 145 MMOL/L 136-145 BUN (test code = BUN) 21 MG/DL 7-18 CO2 (test code = CO2) 23.9 MMOL/L 21.0-32.0 BUN/CREAT RATIO (test code = BUN/CREAT RATIO) 12 10 -14 CR (test code = CR) 1.7 MG/DL 0.4-1.3 CL (test code = CL) 109 MMOL/L 98-110 K (test code = K) 4.0 MMOL/L 3.5-5.1 CA (test code = CA) 9.1 MG/DL 8.5-10.1 LYTES [id number] 08:45:00 Test Item Value Reference Range Comments GLU (test code = GLU) 160 MG/DL 70-110 BUN (test code = BUN) 51 MG/DL 7-18 ION GAP (test code = ION GAP) 10 4-16 CR (test code = CR) 2.1 MG/DL 0.4-1.3 CO2 (test code = CO2) 31.0 MMOL/L 21.0-32.0 K (test code = K) 4.2 MMOL/L 3.5-5.1 CA (test code = CA) 9.5 MG/DL 8.5-10.1 CL (test code = CL) 101 MMOL/L 98-110 BUN/CREAT RATIO (test code = BUN/CREAT RATIO) 24 10 -14 NA (test code = NA) 138 MMOL/L 136-145 [id number] 08:45:00 Test Item Value Reference Range Comments UCR (test code = UCR) 141.9 MG/DL 30.0-125.0 UALB (test code = UALB) 4.6 MG/L 1.3-20.0 UALB/UCR RATIO (test code = UALB/UCR RATIO) 3 MG/DL Assessments Condition Name Status Diagnosis Date Treating Clinici an Full thickness rotator cuff tear Active 2019-12-31 14:2 8:22 Full thickness rotator cuff tear Active 2019-12-30 09:5 1:21 Impingement syndrome of shoulder region Active 09:51:31 Biceps tendinitis Active 2019-12-30 09:51:44 Muscle atrophy Active 2019-12-30 09:52:09 Shoulder pain Active 2019-12-15 08:57:07 Full thickness rotator cuff tear Active 2019-12-16 09:4 2:09 Type 2 diabetes mellitus without Active complications 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 Hyperlipidemia, unspecified Active Bariatric surgery status Active Spinal stenosis in cervical region Active 2019-11-19 10 :12:41 Neck pain Active 2019-11-19 13:47:12 Spinal stenosis in cervical region Active 2019-11-05 09 :23:05 Displacement of cervical intervertebral Active 09:12:44 disc without myelopathy Lumbar spondylosis Active 2019-10-27 09:12:51 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 halfway (current) use of insulin Active Cardiomegaly Active Hyperlipidemia, unspecified Active Lumbar spondylosis Active 2019-04-15 10:34:26 Morbid (severe) obesity due to excess Active calories Body mass index (BMI) 40.0-44.9, adult Active 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 Lumbar spondylosis Active 2019-03-11 08:06:58 Degeneration of lumbar intervertebral Active 2019-03-11 08:07:02 disc Spondylolisthesis Active 2019-03-11 08:07:07 Neck pain Active 2019-03-10 10:52:15 Spinal stenosis in cervical region Active 2019-03-10 11 :36:15 Type 2 diabetes mellitus w diabetic Active chronic kidney disease Chronic kidney disease, stage 3 Active (moderate) 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 Essential (primary) hypertension Active Acute maxillary sinusitis, unspecified Active Unspecified acute conjunctivitis, right Active eye Type 2 diabetes mellitus w diabetic Active chronic kidney disease Chronic kidney disease, stage 3 Active (moderate) 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 mononeuropathy halfway (current) use of insulin Active Unspecified convulsions Active Hyperlipidemia, unspecified Active 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 mononeuropathy halfway (current) use of insulin Active Cardiomegaly Active Migraine w/o aura, intractable, without Active status migrainosus Essential hypertension Active Thoracic aortic aneurysm without Active rupture Dilated cardiomyopathy Active Type 2 diabetes mellitus with insulin Active therapy Sinus bradycardia Active Morbid (severe) obesity due to excess Active calories Body mass index (BMI) 45.0-49.9, adult Active Gastro-esophageal reflux disease Active without esophagitis 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 mononeuropathy 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 mononeuropathy 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 Gastro-esophageal reflux disease Active without esophagitis 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 Chronic obstructive pulmonary disease w Active (acute) exacerbation 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 mononeuropathy halfway (current) use of insulin Active Hyperlipidemia, unspecified Active Dysuria Active Acute cystitis without hematuria Active Other specified disorders of bladder Active Body mass index (BMI) 22.0-22.9, adult Active Morbid (severe) obesity due to excess Active calories Body mass index (BMI) 45.0-49.9, adult Active Chronic kidney disease, stage 3 Active (moderate) Mucopurulent chronic bronchitis Active Abnormal weight gain Active 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 mononeuropathy 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 Obstructive sleep apnea (adult) Active (pediatric) 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 mononeuropathy 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 Hyperlipidemia, unspecified Active Gastro-esophageal reflux disease Active without esophagitis Pain in left knee Active Presence of left artificial knee joint Active Chronic kidney disease, stage 3 Active (moderate) Unspecified chronic bronchitis Active Pain in left knee Active 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 mononeuropathy halfway (current) use of insulin Active Unspecified convulsions Active Retention of urine, unspecified Active Chronic kidney disease, stage 3 Active (moderate) Edema, unspecified Active Iron deficiency anemia, unspecified Active 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 Other obesity due to excess calories Active Body mass index (BMI) 40.0-44.9, adult Active Type 2 diabetes mellitus without Active complications 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 Hyperlipidemia, unspecified Active Chronic diastolic (congestive) heart Active failure Chronic obstructive pulmonary disease, Active unspecified Type 2 diabetes mellitus w diabetic Active chronic kidney disease Chronic kidney disease, stage 3 Active (moderate) Urticaria - Unspecified Active Diabetes Mellitus - Type II Active (Controlled) Hypercholesterolemia Active Seizure - NOS Active Pain - Ankle And Foot Active Pain - Back (Unspecified) Active Diabetes Mellitus - Type II Active (Controlled) Hyperlipidemia (Unspecified) Active Depression - NOS Active Disease - Kidney (Chronic) Stage 3 Active (Moderate) Abdominal pain, other specified site Active Diabetes - Type II (Unspecified Active Complication) Hypercholesterolemia Active Abdominal pain, other specified site Active Abscess/Cellulitis - Arm/Shoulder Active Arthritis - Knee/Lower Leg Active Diabetes Mellitus - Type II Active (Controlled) Renal failure syndrome Active Renal failure syndrome Active Renal failure syndrome Active Renal failure syndrome Active Renal failure syndrome Active Renal Failure (Acute) Active Renal Failure (Acute) Active Renal Failure (Acute) Active Hyperlipidemia Active Leukocytosis Active Seizure Active Diabetes mellitus Active Depressive disorder Active Hyperlipidemia Active Leukocytosis Active Seizure Active Diabetes mellitus Active Depressive disorder Active Hyperlipidemia Active Leukocytosis Active Seizure Active Diabetes mellitus Active Depressive disorder Active Hyperlipidemia Active Leukocytosis Active Seizure Active Diabetes mellitus Active Depressive disorder Active Hyperlipidemia Active Leukocytosis Active Seizure Active Diabetes mellitus Active Depressive disorder Active Hyperlipidemia Active Leukocytosis Active Seizure Active Diabetes mellitus Active Depressive disorder Active Hyperlipidemia Active Leukocytosis Active Seizure Active Diabetes mellitus Active Depressive disorder Active Hyperlipidemia Active Leukocytosis Active Seizure Active Diabetes mellitus Active Depressive disorder Active Hyperlipidemia Active Leukocytosis Active Seizure Active Diabetes mellitus Active Depressive disorder Active Encounters Start End Encounter Admission Attending Care Care Encounter Date/Time Date/Time Type Type Clinicians Facility Department ID 2020-01-04 2020-01-04 Appointment RANJAN Seo [facility] [id number] 13:30:00 16:45:56 ; Anselmo Seo MD 2020-01-04 2020-01-04 Piero Mcnally [facility], [id number] 00:00:00 00:00:00 EVELINA Lugo ho, P.A. P.A. [id number] PA-C: [address] [facility], [facility]. 100, [facility] [place] [address], Ph. 2019-12-30 2019-12-30 Piyush BerryOrt [facility], [id number] 00:00:00 00:00:00 lauren Suh P.A. P.A. [id number] MD: [address] [facility] 100, [facility] [place] [address], Ph. 2019-12-16 2019-12-16 Piyush BerryOrt [facility], [id number] 00:00:00 00:00:00 lauren Suh, P.A. P.A. [id number] MD: [address] [facility] [address], [facility] [place] [address], Ph. 2019-12-04 2019-12-04 Outpatient Bundle, [place] [id number] 15:15:00 15:15:00 Tiffany Children???s [id number] and [id number] Multispecialty [id number] Clini 2019-12-04 2019-12-04 Appointment CETW [facility] [id number] 11:30:00 11:30:00 ; Shari Moore 2019-12-03 2019-12-03 [facility] [id number] 11:00:00 11:00:00 ; Anselmo Seo MD 2019-11-19 2019-11-19 Piyush BerryOrt [facility], [id number] 00:00:00 00:00:00 MD Hammad: Mehdi aguilarA. P.A. [address] [place] [address], Ph. 2019-11-05 2019-11-05 Piyush Malhotra [facility], [id number] 00:00:00 00:00:00 MD Hammad: Elvin aguilar. P.A. [address] [place] [address], Ph. 2019-10-27 2019-10-27 [facility] [id number] 00:00:00 00:00:00 lauren Goldman P.A. P.A. [id number] PA-C: [address] [place] [address], Ph. 2019-10-22 2019-10-22 Outpatient Bundle, [facility] EB [id number] 09:30:00 09:30:00 Tiffany Flores [id number] s [id number] and [id number] [facility], 2019-04-15 2019-04-[address] [id number] 00:00:00 00:00:00 lauren Goldman P.A. P.A. [id number] PA-C: [address] [place] [address], Ph. 2019-03-30 2019-03-30 Outpatient Bundle, [facility] 40 [id number] 13:00:00 13:00:00 Tiffany Flores [id number] s [id number] and [id number] [facility], 2019-03-11 2019-03-[address] [id number] 00:00:00 00:00:00 lauren Goldman P.A. P.A. [id number] PA-C: [address] [place] [address], Ph. 2019-03-10 2019-03-10 Piyush BerryOrt [facility], [id number] 00:00:00 00:00:00 MD Hammad: Elvin aguilar. P.A. 25679 [address] [place] [address], Ph. 2018-12-23 2018-12-23 Outpatient Bundle, [facility] A3 [id number] 08:00:00 08:00:00 Tiffany Children [id number] s [id number] and [id number] [facility], 2018-09-29 2018-09-29 Outpatient Bundle, [facility] 7C [id number] 14:00:00 14:00:00 Tiffany Flores???s [id number] and [id number] Multispecialty [id number] Clini 2018-08-22 2018-08-22 Outpatient Bundle, [facility] D3 [id number] 08:15:00 08:15:00 Tiffany Children [id number] s [id number] and [id number] [facility], 2018-06-24 2018-06-24 Outpatient Bundle, [facility] CB [id number] 08:15:00 08:15:00 Tiffany Flores [id number] s [id number] and [id number] [facility], 2018-06-17 2018-06-17 Appointment MARCIA WelshTW [facility] [id number] 08:30:00 08:30:00 ; Blake Welsh MD 2018-05-07 2018-05-07 Outpatient Bundle, [facility] 55 [id number] 09:45:00 09:45:00 Tiffany Children [id number] s [id number] and [id number] [facility], 2018-02-24 2018-02-24 Outpatient Bundle, [facility] 57 [id number] 13:00:00 13:00:00 Tiffany Children [id number] s [id number] and [id number] [facility] 2018-02-05 2018-02-05 Outpatient Bundle, [facility] 6A [id number] 08:45:00 08:45:00 Tiffany Flores [id number] s [id number] and [id number] [facility] 2017-12-25 2017-12-25 Outpatient Bundle, [facility] A3 [id number] 10:00:00 10:00:00 T[facility] Children [id number] s [id number] and [id number] [facility] 2017-12-19 2017-12-19 Outpatient Bundle, [facility] A0 [id number] 11:00:00 11:00:00 Tiffany Flores [id number] s [id number] and [id number] [facility] 2017-11-04 2017-11-04 Appointment MARCIA WelshTW [facility] [id number] 14:45:00 14:45:00 ; Blake Welsh MD 2017-10-23 2017-10-23 Outpatient Bundle, [facility] F3 [id number] 09:45:00 09:45:00 Tiffany Flores [id number] s [id number] and [id number] [facility] 2017-06-14 2017-06-14 Outpatient Bundle, [facility] 0A [id number] 09:00:00 09:00:00 Tiffany Flores [id number] s [id number] and [id number] [facility] 2017-02-13 2017-02-13 Outpatient Bundle, [facility] 7D [id number] 08:45:00 08:45:00 Tiffany Flores [id number] s [id number] and [id number] [facility] 2017-01-23 2017-01-23 Outpatient Bundle, [facility] 82 [id number] 13:30:00 13:30:00 Tiffany Children [id number] s [id number] and [id number] [facility] 2016-11-16 2016-11-16 Outpatient Bundle, [facility] 8E [id number] 13:30:00 13:30:00 Tiffany Flores [id number] s [id number] and [id number] [facility] 2016-09-19 2016-09-19 Outpatient Bundle, [facility] AF [id number] 09:00:00 09:00:00 Tiffany Flores [id number] s [id number] and [id number] [facility] 2016-06-19 2016-06-19 Outpatient Bundle, [facility] 60 [id number] 09:00:00 09:00:00 Tiffany Flores [id number] s [id number] and [id number] [facility] 2016-02-16 2016-02-16 Outpatient Bundle, [facility] D0 [id number] 09:30:00 09:30:00 Tiffany Flores [id number] s [id number] and [id number] [facility] 2014-02-26 2014-02-26 Outpatient Bundle MINDY HANANE Ho [id number] 09:30:00 09:30:00 C, [facility] [id number] [facility], [id number] F Inc[employer] [id number] 2013-11-27 2013-11-27 Outpatient Bundle MINDY HANANE Ho [id number] [id number] 08:15:00 08:15:00 C, [facility] [id number] [facility], [id number] 1 Inc[employer] [id number] 2013-11-09 2013-11-09 [place] [id number] 08:30:00 08:30:00 C, [facility] [id number] [facility], [id number] 2 Inc[employer] [id number] 2013-08-25 2013-08-25 Outpatient Bundle MINDY Ho AEAD1 [id number] 08:15:00 08:15:00 C, [facility] [id number] [facility], [id number] [employer] [id number] 2013-08-10 2013-08-10 Outpatient Bundle MINDY HANANE Ho [id number] 08:15:00 [id number], [id number] 4 Inc[employer] [id number] 2013-07-21 2013-07-21 Outpatient Bundle [place]Y [place] [id number] 08:15:00 08:15:[address] [facility] [id number] [facility], [id number] E Inc[employer] [id number] 2013-06-22 2013-06-22 Outpatient Bundle MINDY Ho [id number]-[id number] 08:15:00 08:15:[address] [facility] [id number] [facility], [id number] Inc. [id number] 2013-06-08 2013-06-08 Outpatient Bundle MINDY Ho [id number] 00:00:00 00:00:00 [facility] [id number]-[id number] [facility], [id number] 3 Inc. [id number] 2013-06-04 2013-06-04 Outpatient Bundle MINDY Ho F89ED F40-D 09:45:00 09:45:00 [facility] [id number] [facility], [id number] 2 Inc[employer] [id number] Family History Family Member Diagnosis Comments Start Date Stop Date Mother Family history of hypertension Mother Family history of hyperlipidemia Mother Family history of renal failure Father Family history of type 2 diabetes mellitus Father Family history of heart disease Father Family history of hyperlipidemia Immunizations Ordered Immunization Filled Immunization Date Status Commen ts Refusal Reason Name Name influenza, 2018-10-27 Completed injectable, 00:00:00 quadrivalent influenza, 2017-10-23 Completed injectable, 00:00:00 quadrivalent influenza, 2016-11-09 Completed injectable, 00:00:00 quadrivalent Pneumococcal 2015-02-25 Completed Conjugate, 00:00:00 unspecified formulation influenza, 2015-02-25 Completed injectable, 00:00:00 quadrivalent Plan of Treatment Planned Activity Planned Date Details Comments Future Scheduled Test [code = ] Future Appointment 2020-01-18 11:00:00 Piero Lugo, [address] [place] [address]; [facility]. [address] [place] [address] Future Appointment 2020-01-15 08:00:00 Hazel Fang, [address] [place] [address]; [place] [id number] Future Appointment 2020-01-12 08:00:00 Leland Padillachery, [address] [place] [address]; , [place] [address] Social History Smoking Status Start Date Stop Date Smokes tobacco daily (finding) Former Smoker Vital Signs Vital Name Observation Time Observation Value Comments Height 2020-01-04 00:00:00 65 [in_i] BMI (Body Mass Index) 2020-01-04 00:00:00 28.3 kg/m2 Body Weight 2020-01-04 00:00:00 170 [lb_av] Height 2019-12-30 00:00:00 65 [in_i] BMI (Body Mass Index) 2019-12-30 00:00:00 28.3 kg/m2 Body Weight 2019-12-30 00:00:00 170 [lb_av] Height 2019-12-16 00:00:00 65 [in_i] BMI (Body Mass Index) 2019-12-16 00:00:00 28.6 kg/m2 Body Weight 2019-12-16 00:00:00 172 [lb_av] Height 2019-11-19 00:00:00 65 [in_i] BMI (Body Mass Index) 2019-11-19 00:00:00 31.3 kg/m2 Body Weight 2019-11-19 00:00:00 188 [lb_av] Height 2019-11-05 00:00:00 65 [in_i] BMI (Body Mass Index) 2019-11-05 00:00:00 31.3 kg/m2 Body Weight 2019-11-05 00:00:00 188 [lb_av] Body Weight 2019-10-27 00:00:00 182 [lb_av] Height 2019-10-27 00:00:00 65 [in_i] BMI (Body Mass Index) 2019-10-27 00:00:00 30.3 kg/m2 Height 2019-04-15 00:00:00 65 [in_i] BMI (Body Mass Index) 2019-04-15 00:00:00 40.4 kg/m2 Body Weight 2019-04-15 00:00:00 243 [lb_av] Height 2019-03-11 00:00:00 65 [in_i] BMI (Body Mass Index) 2019-03-11 00:00:00 43.4 kg/m2 Body Weight 2019-03-11 00:00:00 261 [lb_av] Height 2019-03-10 00:00:00 65 [in_i] BMI (Body Mass Index) 2019-03-10 00:00:00 43.5 kg/m2 Body Weight 2019-03-10 00:00:00 261.2 [lb_av] Systolic blood pressure 2020-01-04 13:17:00 122 mm[Hg] Diastolic blood pressure 2020-01-04 13:17:00 76 mm[Hg] Weight 2020-01-04 13:17:00 182 [lb_av] Body mass index (BMI) 2020-01-04 13:17:00 30.29 kg/m2 [Ratio] Heart Rate 2020-01-04 13:17:00 48 /min O2 SAT 2020-01-04 13:17:00 98 % Systolic blood pressure 2019-12-03 11:07:00 130 mm[Hg] Loca tion: LUE; Position: Sittin g Diastolic blood pressure 2019-12-03 11:07:00 74 mm[Hg] Loc ation: LUE; Position: Sittin g Weight 2019-12-03 11:07:00 181 [lb_av] Body mass index (BMI) 2019-12-03 11:07:00 30.12 kg/m2 [Ratio] Heart Rate 2019-12-03 11:07:00 42 /min O2 SAT 2019-12-03 11:07:00 96 % Hospital Discharge Instructions NameDatesDetailsInstructions not documentedNameDatesDetailsInstructions not documented1. Displacement of cervical intervertebral disc without myelopathy cervical disc disease: care instructions 2. Lumbar spondylosis Discussion Note: None recorded.1. Lumbar spondylosis Discussion Note: None recorded. Patient educational handouts: No information available.1. Neck pain neck pain: care instructions XR, cervical spine 2. Spinal stenosis in cervical region Discussion Note More than 50% of the office visit involved face to face time with the patient coordinating a care plan and counseling. Office visit duration was about 15 minutes. Imaging and/or test results were explained in detail. Risks and benefits of the possible treatment options (includingno treatment) were carefully weighted and discussed. Questions answered. NameDatesDetailsInstructions not documented
== END ==
LOC: OD 11:19
PROVIDERS: ATTEND Anesthesiology
DX: Z01.812 Encounter for preprocedural laboratory examination (principal); E10.9 Type 1 diabetes mellitus without complications
CPT/HCPCS: 36415; 80048

== ENCOUNTER → 2020-01-18 | Outpatient (CLI) | payer MEDICARE ==
[2020-01-18 11:20] LABS: ABSOLUTE BASOPHILS # (AUTO) 0.1 10^3/uL (0.0-0.2); ABSOLUTE EOSINOPHILS # (AUTO) 0.3 10^3/uL (0.0-0.6); ABSOLUTE LYMPHOCYTES (AUTO) 1.7 10^3/uL (0.5-4.7); ABSOLUTE MONOCYTES (AUTO) 0.3 10^3/uL (0.1-1.4); ABSOLUTE NEUT (AUTO) 2.8 10^3/uL (1.7-8.2); EOSINOPHILS % (AUTO) 5.6 % (0-6); HEMATOCRIT 38.7 % (36.0-47.0); HEMOGLOBIN 13.2 g/dL (12.0-15.5); LYMPHOCYTES % (AUTO) 33.4 % (13-45); MEAN CORPUSCULAR HEMOGLOBIN 32.3 pg (27.0-33.4); MEAN CORPUSCULAR HGB CONC 34.2 g/dL (32.0-36.0); MEAN CORPUSCULAR VOLUME 95 fl (80-97); MONOCYTES % (AUTO) 6.4 % (3-13); PLATELET COUNT 286 10^3/uL (150-450); RED CELL DISTRIBUTION WIDTH 12.8 % (11.5-14.0); SEGMENTED NEUTROPHILS % (AUTO) 53.6 % (42-78); TOTAL CELLS COUNTED % (AUTO) 100 %; WHITE BLOOD COUNT 5.2 10^3/uL (4.0-10.5)
[2020-01-18 11:41] LABS: ALBUMIN 3.8 g/dL (3.5-5.0); ANION GAP 8 (5-19); BLOOD UREA NITROGEN 29 mg/dL (7-20); CALCIUM 9.2 mg/dL (8.4-10.2); CARBON DIOXIDE 26 mmol/L (22-30); CHLORIDE 105 mmol/L (98-107); GLUCOSE 137 mg/dL (75-110); PHOSPHORUS 4.4 mg/dL (2.5-4.5); POTASSIUM 4.5 mmol/L (3.6-5.0)
== END ==
LOC: OD 10:47
PROVIDERS: ATTEND Internal Medicine Nephrology
DX: I12.9 Hypertensive chronic kidney disease with stage 1 through stage 4 chronic kidney disease, or unspecified chronic kidney disease (principal); N18.30 Chronic kidney disease, stage 3 unspecified; E11.22 Type 2 diabetes mellitus with diabetic chronic kidney disease; N39.0 Urinary tract infection, site not specified
CPT/HCPCS: 36415; 80069; 81001; 82043; 82306; 82570; 83970; 85025; 87086; 87088; 87186